=== PATIENT | male | born 1995 | race African-American/Black ===

== ENCOUNTER → 2018-07-20 08:08 | Outpatient (POV) | payer OTHER, SELFPAY | PROVIDERS: Family Provider Family Medicine; PCP Nurse Practitioner; Visit Provider Dentist | DX: Z00.00 Encounter for general adult medical examination without abnormal findings (principal) ==

== ENCOUNTER 2020-09-19 17:21 | Emergency (ER) | payer OTHER, SELFPAY ==
[2020-09-19 17:22] VITALS: BP 119/82; BP 133/80; PULSE 83; PULSE 96; RESP 15; TEMP 36.6; O2SAT 100; BMI 21.2
--- NOTE | 2020-09-19 17:25 | ECG_ITS ---
APPROVED REPORT Exam: Resting ECG HR:79 bpm ECG Measurements Heart Rate 79 AXES RI 142 P 68 QRSd 78 QRS 93 QT 354 T 71 QTc 405 Conclusion Normal sinus rhythm Rightward axis Borderline ECG Electronically signed by : Gordy Meeks, 09/22/2020 07:30:54
--- NOTE | 2020-09-19 17:26 | XR_ITS ---
PROCEDURE: XR CHEST 2V Referring Doctor: Jah Morales Patient Age:25Y CLINICAL HISTORY: pain right-sided chest pain near collar bones past 3 weeks getting worse. Patient recently started they ping COMPARISON: CR CXR CHEST(2 VIEWS-NOT PORTABLE) from 04/12/2013 FINDINGS: Today's PA and lateral chest upright is compared to March 2013 CXR. No significant new findings. No focal infiltrate or consolidation. No pleural effusion or pneumothorax. The mild accentuation of central markings seen previously and I believe is stable when technique considered but no pulmonary mass or nodule identified. The heart is normal in size with roman and mediastinal structures unchanged and appearing satisfactory.. The chest wall appears satisfactory. No rib fracture or lesion on this standard chest film in the ribs, chest wall and T-spine appear stable and unchanged since 2012. The right clavicle shows no discrete pathology. Bones are fairly dense at the shoulders and clavicles clavicle but patient's young age and technique variations. The right hemidiaphragm of appear stable only slightly elevated compared to the left. No cervical ribs of significance. Lung apices clear. No erosions appreciated at the visualize ends of the clavicle on this chest film IMPRESSION: Stable chest with nothing definitely acute. Dictated by: Deandre Tang MD 09/20/2020 16:40 Deandre Tang MD in [place] 09/20/2020 16:40
--- NOTE | 2020-09-19 17:27 | HMH.EDGENADL ---
ED Disposition Clinical Impression: Chest pain Qualifiers: Chest pain type: chest pain on breathing Qualified Code(s): R07.1 - Chest pain on breathing Disposition: Home, Self-Care Condition on Discharge: Good Referrals: Gordy Kearney MD [Primary Care Provider] - 3 days Time of Disposition: 18:20 - Critical Care Critical Care Time: No Attestation: On , the high probability of a clinically significant, sudden or life threatening deterioration of the following system(s) required my full and direct attention, intervention and personal management. The time I documented below is in addition to time spent performing reported procedures but includes the following listed in this critical care notation. Medical Decision Making - Zachariah Inquiry Pt receiving controlled substance: No Zachariah was queried for this patient: No Vital Signs: 09/19/20 17:22 09/19/20 17:52 Temperature 97.8 F Temperature Source Temporal Artery Scan Pulse Rate [Right] 83 76 Respiratory Rate 15 Blood Pressure [Right Arm] 119/82 136/81 Blood Pressure Mean [Right Arm] 94 99 Blood Pressure Source [Right Arm] Automatic Cuff Automatic Cuff Blood Pressure Position [Right Arm] Sitting Sitting 02 Sat by Pulse Oximetry 100 98 Oxygen Delivery Method Room Air Room Air - Lab Data Lab Results 09/19/20 17:27: WBC 11.4 H, RBC 5.46, Hgb 15.3, Hct 47.5, MCV 87.0, MCH 28.0, MCHC 32.2, RDW 12.7, Plt Count 195, MPV 8.0, Neut % (Auto) 72.4, Lymph % (Auto) 19.2, Mclennan % (Auto) 7.1, Eos % (Auto) 0.8, Baso % (Auto) 0.5, Neut # (Auto) 8.2 H, Lymph # (Auto) 2.2, Mclennan # (Auto) 0.8, Eos # (Auto) 0.1, Baso # (Auto) 0.1 09/19/20 17:27: Sodium 140, Potassium 4.0, Chloride 102, Carbon Dioxide 29, Anion Gap 13.0, BUN 16, Creatinine 0.90, Estimated Creat Clear 137, Estimated GFR 103, Est GFR ( Amer) 124, Glucose 104 H, Calcium 9.5, Troponin I < 0.01 Result diagrams: 09/19/20 17:27 09/19/20 17:27 Orders (Tests/Meds): ORDERS Category Date Time Status XR chest 2V Stat Exams 09/19/20 17:26 Taken Troponin I Q3H Lab 09/19/20 20:30 Ordered Troponin I Q3H Lab 09/19/20 23:30 Ordered - ECG Data Tracing #1 7 9 bpm, normal sinus rhythm, normal intervals, no ST elevation or depression, no ectopy. ECG initial impression date: 09/19/20 ECG initial impression time: 17:27 Normal Sinus Rhythm: Yes Medical Decision Narrative: 25yo M evaluated secondary to right shoulder pain and shortness of breath. Differential diagnosis includes was not limited to: Musculoskeletal injury, asthma exacerbation, anxiety, ACS/MS. Initial presentation patient is in no acute distress, satting 99 to 100% on room air. Patient has numerous complaints about how his clavicle was broken when he was a child that is grandparents were and ignored his complaint until his clavicle had healed and there is nothing further to be done about it. He talks about how his chest feels heavy all over and he could not bring himself to get out of bed yesterday because his shoulder hurt too bad. EKG is unremarkable. Blood work is pending. Strongly suspect a component of anxiety. CBC, CMP, troponin are all unremarkable. Chest x-ray is negative. Patient was discharged home in stable condition. Encouraged to follow-up PCP for further evaluation and work-up. General Adult HPI - General Chief complaint: PAIN Stated complaint: pain in right rib/chest, soa Time Seen by Provider: 09/19/20 17:28 Mode of Arrival: Ambulatory Limitations: No Limitations Description of Symptoms (Recalled from ER Triage Doc. by RN): C/o right sided rib pain that radiates all throughout his chest and up into his colar bone. Pt states it hurts worse when he breathes in and moves. - History of Present Illness HPI narrative: 25yo M w/ past medical history significant for asthma and a fractured right clavicle reports the emergency department secondary to chest pain and shortness of breath. Patient states this is been ongoing f
[2020-09-19 17:39] LABS: Basophils # 0.1 K/mm3 (0-0.2); Basophils % 0.5 % (0.1-2.0); Eosinophils # 0.1 K/mm3 (0.0-0.4); Eosinophils % 0.8 % (0.1-12.0); Hematocrit 47.5 % (42.0-52.0); Hemoglobin 15.3 g/dL (14.1-18.0); Lymphocytes # 2.2 K/mm3 (0.7-4.5); Lymphocytes % 19.2 % (10-50); Mean Corpuscular HGB Conc 32.2 g/dL (31.8-35.4); Monocytes # 0.8 K/mm3 (0.1-1.0); Monocytes % 7.1 % (1.7-9.3); Neutrophils # 8.2 K/mm3 (1.8-7.8); Neutrophils % 72.4 % (37.0-80.0); Platelet Count 195 K/mm3 (142-424); Red Blood Count 5.46 M/mm3 (4.60-6.20); Red Cell Distribution Width 12.7 % (11.5-17.5); White Blood Count 11.4 K/mm3 (4.8-10.8)
[2020-09-19 17:44] LABS: Blood Urea Nitrogen 16 mg/dl (9-20); Calcium 9.5 mg/dl (8.4-10.2); Carbon Dioxide 29 mmol/L (22.0-30.0); Chloride 102 mmol/L (98-107); Creatinine Clearance Estimated 137 mL/min (50-200); Estimated Glomerular Filt Rate 103 ml/min (>60); GFR (African American) 124 ML/MIN (>60); Glucose 104 mg/dl (74-100); Sodium 140 mmol/L (136-145)
[2020-09-19 17:52] VITALS: BP 136/81; PULSE 76; O2SAT 98
[2020-09-19 18:00] VITALS: BP 125/79; PULSE 79; O2SAT 98
[2020-09-19 18:16] LABS: Troponin I < 0.01 ng/ml (0.00-0.034)
[2020-09-19 18:28] VITALS: BP 123/87; PULSE 87; RESP 12; TEMP 36.7; O2SAT 99
== END 2020-09-19 18:28 | disposition home or self-care (01) ==
PROVIDERS: Emergency Provider Family Medicine; PCP Family Medicine
DX: R07.1 Chest pain on breathing (principal); F17.290 Nicotine dependence, other tobacco product, uncomplicated
CPT/HCPCS: 71046; 80048; 84484; 85025; 93005; 99283

== ENCOUNTER 2021-01-17 21:16 | Emergency (ER) | payer OTHER, SELFPAY ==
[2021-01-17 21:27] VITALS: BP 123/73; PULSE 79; RESP 17; TEMP 36.6; O2SAT 96
--- NOTE | 2021-01-17 21:34 | XR_ITS ---
PROCEDURE: XR CHEST 2V CLINICAL HISTORY: right shoulder pain COMPARISON: CR CXR CHEST(2 VIEWS-NOT PORTABLE) from 04/12/2013 CR XR CHEST 2V from 09/19/2020 FINDINGS: The cardiomediastinal silhouette and pulmonary vascularity are within normal limits. The lungs are clear without infiltrates, suspicious nodules, or pleural effusions. No acute bony abnormalities. IMPRESSION: No acute findings. Dictated by: Dr. Devon Wang MD 01/18/2021 08:32 Dr. Devon Wang MD in [place] 01/18/2021 08:32
--- NOTE | 2021-01-17 21:34 | XR_ITS ---
PROCEDURE: XR SHOULDER RT MIN 2V CLINICAL INDICATION: pain with movement COMPARISON: No exams were available for comparison FINDINGS: There is an old well healed fracture of the lateral clavicle. The AC joint appears normal. The humeral head and glenoid are normal. There are no soft tissue calcifications. IMPRESSION: Old healed fracture lateral right clavicle Dictated by: Dr. Devon Wang MD 01/18/2021 08:34 Dr. Devon Wang MD in [place] 01/18/2021 08:34
--- NOTE | 2021-01-17 22:27 | HMH.EDGENADL ---
ED Disposition Clinical Impression: Scapular dysfunction Disposition: Home, Self-Care Condition on Discharge: Good Instructions: DI for Acute Pain -- Adult Additional Instructions: use meds and see pcp and ortho for follow up Prescriptions: predniSONE [Prednisone 20mg Tab] 20 mg PO BID #10 tab Prescription Printed Referrals: Gordy Kearney MD [Primary Care Provider] - Seth Ledbetter MD [Staff Physician] - - Critical Care Critical Care Time: No Attestation: On 01/17/21, the high probability of a clinically significant, sudden or life threatening deterioration of the following system(s) required my full and direct attention, intervention and personal management. The time I documented below is in addition to time spent performing reported procedures but includes the following listed in this critical care notation. Medical Decision Making - Medical Records Medical records reviewed: Yes: I reviewed the patient's medical records. - Zachariah Inquiry Pt receiving controlled substance: No Vital Signs: 01/17/21 21:27 Temperature 97.8 F Temperature Source Oral Pulse Rate [Right Brachial] 79 Respiratory Rate 17 Blood Pressure [Right Arm] 123/73 Blood Pressure Mean [Right Arm] 89 Blood Pressure Source [Right Arm] Automatic Cuff Blood Pressure Position [Right Arm] Sitting 02 Sat by Pulse Oximetry 96 Oxygen Delivery Method Room Air - Lab Data Lab results reviewed: Yes: I reviewed the patient's lab results. Orders (Tests/Meds): ORDERS Category Date Time Status CT chest wo con Stat Cat Scan 01/17/21 22:32 Taken Chest XR 2 view (NOT portable) [XR chest 2V] Stat Exams 01/17/21 21:34 Taken XR shoulder RT min 2V Stat Exams 01/17/21 21:34 Taken - Radiology Data #1 Image(s): Chest, Shoulder Image Reviewed: Yes I reviewed the patient's radiology image Preliminary Findings: No Fracture Seen - CT Data CT Scan: Chest Time Received: 00:[address] Reviewed: Yes: I have viewed the radiologist's interpretation Preliminary Findings: Normal/NAD Medical Decision Narrative: no pxt and has pain rt scapular with rom - will need ortho General Adult HPI - General Chief complaint: PAIN Stated complaint: pain right shoulder blade Time Seen by Provider: 01/17/21 22:00 Mode of Arrival: Family Vehicle Source of Information: Patient, Medical Record Limitations: No Limitations Description of Symptoms (Recalled from ER Triage Doc. by RN): right shoulder blade and clavicular discomfort for several days - History of Present Illness HPI narrative: rt scapular pain and rt ant chest pain with inc pain with rom and grinding to scapular area - does have alot lifting at work Onset (ago): day(s) Location: right, upper extremity Severity: moderate Associated symptoms: denies other symptoms Treatments prior to arrival: none - Related Data Previous Rx's Medication Instructions Recorded predniSONE [Prednisone 20mg 20 mg PO BID #10 tab 01/18/21 Tab] Allergies Allergy/AdvReac Type Severity Reaction Status Date / Time SHELLFISH (FOOD) Allergy Unknown SHOWED UP Uncoded 10/11/17 14:57 ON ALLERGY TESTING [facility] History - Hepatitis A Screen Drug use history?: No High risk sexual behaviors?: No History of sexually transmitted infection?: No Currently employed?: No Childcare worker?: No Do you have indoor plumbing?: Yes Do you have electricity?: Yes Attestation statement:: This patient has been screened for Hepatitis A risk factors. I have reviewed the patient's past medical history: Yes - Social History Alcohol Intake: never Occupational Status: other Household Members: other ROS Obtained: Yes All systems reviewed & no additional complaints - Constitutional Constitutional: Denies fever(s) - Eyes Eyes: Denies change in vision - ENT Ears, Nose, Mouth, and Throat: Denies sore throat - Cardiovascular Cardiovascular: Reports as per HPI, Denies chest pain, De
--- NOTE | 2021-01-17 22:32 | CT_ITS ---
PROCEDURE: CT CHEST WO CON CLINICAL INDICATION: RULE OUT PNEUMO COMPARISON: No exams were available for comparison TECHNIQUE: Axial images obtained with sagittal and coronal reformats. All CT scans at the facility use one or more dose reduction, viz: automated exposure control, ma/kV adjustment per patient size (including targeted exams where dose is matched to indication, i.e. head), or iterative reconstruction technique. FINDINGS: HEART AND MEDIASTINAL STRUCTURES: The heart is normal in size, there may be a tiny amount of pericardial fluid seen anteriorly. LUNGS AND PLEURAL SPACES: The lung bowles are somewhat hyperexpanded. There are borderline emphysematous changes. There is no infiltrate and no pleural fluid. There is no pneumothorax. BONY STRUCTURES: No acute bony abnormalities apparent. UPPER ABDOMEN: There is a tiny 1 mm nonobstructing calculus upper pole left kidney ADDITIONAL FINDINGS: No other significant abnormalities. IMPRESSION: Borderline emphysematous changes versus hyperexpansion from possible asthma, no definite pneumonic infiltrate seen Dictated by: Dr. Devon Wang MD 01/18/2021 08:55 Dr. Devon Wang MD in [place] 01/18/2021 08:55
[2021-01-18 00:04] VITALS: BP 113/74; PULSE 71; RESP 16; TEMP 36.7; O2SAT 98
== END 2021-01-18 00:18 | disposition home or self-care (01) ==
PROVIDERS: Emergency Provider Emergency Medicine; PCP Family Medicine
DX: M25.511 Pain in right shoulder (principal)
CPT/HCPCS: 71046; 71250; 73030; 99282

== ENCOUNTER 2021-09-05 14:44 | Emergency (ER) | payer OTHER, SELFPAY ==
[2021-09-05 14:45] VITALS: BP 104/80; PULSE 81; RESP 21; TEMP 37.2; O2SAT 98; BMI 19.3
--- NOTE | 2021-09-05 15:13 | HMH.EDUTC ---
[facility] Clinical Impression: Bronchitis Disposition: Home, Self-Care Condition on Discharge: Good Instructions: Acute Bronchitis Additional Instructions: Start antibiotic today. Be sure to complete entire prescription even if feeling better Tylenol and ibuprofen as needed for pain or fever Humidifier/vaporizer/hot steamy shower Follow-up with primary care tomorrow. Follow-up immediately in the ER of the [facility] for new or worsening symptoms or no noticeable improvement over the next 48-72 hours. Stop smoking Inhaler every 4-6 hours as needed. Should help open airways improved cough, wheezing, shortness of breath Start steroids today. Helps with inflammation therefore coughing and wheezing. Follow directions on package. Prescriptions: predniSONE [Prednisone 20mg Tab] 20 mg PO BID #10 tab [email or web address] Azithromycin [Zithromax 250mg tab] 250 mg PO DIRECTED #6 tab Transmission Status: [email or web address] Referrals: Gordy Kearney MD [Primary Care Provider] - Time of Disposition: 15:18 Medical Decision Making - Zachariah Inquiry Pt receiving controlled substance: No Vital Signs: 09/05/21 14:45 Temperature 99.0 F Temperature Source Oral Pulse Rate [Right Brachial] 81 Respiratory Rate 21 Blood Pressure [Right Arm] 104/80 L Blood Pressure Mean [Right Arm] 88 Blood Pressure Source [Right Arm] Automatic Cuff Blood Pressure Position [Right Arm] Sitting 02 Sat by Pulse Oximetry 98 Oxygen Delivery Method Room Air Orders (Tests/Meds): ORDERS Category Date Time Status Rapid PCR Covid and Flu A/B Stat Lab 09/05/21 15:11 Ordered [facility] HPI - General Chief complaint: [facility] Stated complaint: congestion, cough Time Seen by Provider: 09/05/21 15:13 Mode of Arrival: Ambulatory Source of Information: Patient Limitations: No Limitations Description of Symptoms (Recalled from Triage Doc. by RN): PATIENT C/O RUNNY NOSE, COUGH AND BODY ACHES X 2 DAYS HEENT Symptoms (Recalled from RN notes): Yes Resp Symptoms (Recalled from RN notes): Yes Skin Symptoms (Recalled from RN notes): No MS Symptoms (Recalled from RN notes): No Functional Status (Recalled from RN notes): WNL - History of Present Illness Provider Complaint: 26 yr old male presents for cough,wheezing, congestion and sore throat for 3 days. has been exposed to covid - Related Data Previous Rx's Medication Instructions Recorded Azithromycin [Zithromax 250mg 250 mg PO DIRECTED #6 tab 09/05/21 tab] predniSONE [Prednisone 20mg 20 mg PO BID #10 tab 09/05/21 Tab] Allergies Allergy/AdvReac Type Severity Reaction Status Date / Time shellfish derived Allergy Verified 09/05/21 15:01 - Worker's Comp Is this a Worker's Comp case?: No [facility] History - Hepatitis A Screen Drug use history?: No High risk sexual behaviors?: No History of sexually transmitted infection?: No Currently employed?: No Childcare worker?: No Do you have indoor plumbing?: Yes Do you have electricity?: Yes Attestation statement:: This patient has been screened for Hepatitis A risk factors. I have reviewed the patient's past medical history: Yes - Social History Alcohol Intake: never Occupational Status: other Household Members: other ROS Obtained: Yes Systems reviewed as appropriate & no additional complaints - Constitutional Constitutional: Reports system reviewed and no additional complaints, except as docu, Denies fever(s) - Eyes Eyes: Reports system reviewed and no additional complaints, except as docu, Denies blind spots - ENT Ears, Nose, Mouth, and Throat: Reports system reviewed and no additional complaints, except as docu, Reports nasal congestion, Reports nasal discharge, Denies sore throat - Cardiovascular Cardiovascular: Reports system reviewed and no additional complaints, except as docu, Denies chest pain - Respiratory Respiratory:
[2021-09-05 15:25] VITALS: BP 104/80; PULSE 81; RESP 21; TEMP 37.2; O2SAT 98
[2021-09-05 15:31] LABS: Influenza A, PCR Not Detected (NotDetected); Influenza B, PCR Not Detected (NotDetected)
[2021-09-05 16:10] LABS: Coronavirus 19, PCR Detected (NotDetected)
== END 2021-09-05 15:29 | disposition home or self-care (01) ==
PROVIDERS: Emergency Provider Nurse Practitioner Family; PCP Family Medicine
DX: U07.1 COVID-19 (principal); J02.9 Acute pharyngitis, unspecified
CPT/HCPCS: 99202; C9803; G0463; U0003; U0005

== ENCOUNTER → 2021-09-22 13:21 | Outpatient (CLI) | payer OTHER, SELFPAY | PROVIDERS: PCP Family Medicine; Visit Provider Nurse Practitioner | DX: Z20.822 Contact with and (suspected) exposure to COVID-19 (principal) | CPT/HCPCS: C9803; U0003; U0005 ==

== ENCOUNTER 2021-10-09 11:09 | Emergency (ER) | payer OTHER, SELFPAY ==
[2021-10-09 12:10] VITALS: BP 149/71; PULSE 96; RESP 18; TEMP 37.1; O2SAT 95
--- NOTE | 2021-10-09 12:13 | XR_ITS ---
PROCEDURE: XR CHEST 2V CLINICAL HISTORY: sob cough COMPARISON: CR CXR CHEST(2 VIEWS-NOT PORTABLE) from 04/12/2013 CR XR CHEST 2V from 09/19/[address] CHEST WO CON from 01/17/2021 CR XR CHEST 2V from 01/17/2021 FINDINGS: The cardiomediastinal silhouette and pulmonary vascularity are within normal limits. There is hyperinflation of the lungs suggesting small airway disease. No lobar consolidation or collapse. No acute bony abnormalities. There is an old right clavicle fracture. IMPRESSION: Lung hyperinflation suggesting small airway disease such is asthma or bronchitis. Dictated by: Kenneth Allen MD 10/09/2021 13:00 Kenneth Allen MD in [place] 10/09/2021 13:00
--- NOTE | 2021-10-09 12:41 | HMH.EDUTC ---
[facility] Impression: Asthma exacerbation Qualifiers: Asthma severity: unspecified severity Asthma persistence: unspecified Qualified Code(s): J45.901 - Unspecified asthma with (acute) exacerbation Disposition: Home, Self-Care Condition on Discharge: Good Instructions: DI for Asthma -- Adult Additional Instructions: Drink plenty of fluids. Take tylenol or ibuprofen for pain or fever. Take the medications as directed. Follow up with your regular doctor. GO TO THE ER FOR ANY WORSENING SYMPTOMS The cough medication (promethazine dm) will make you drowsy, so don't drive or operate heavy machinery after taking it. Prescriptions: Albuterol Sulfate [Albuterol 0.083% 2.5mg/3mL neb] 2.5 mg IH Q6HP PRN 30 Days #90 ml PRN Reason: Shortness Of Breath Transmission Status: Received by [facility] Promethazine/Dextromethorphan [Promethazine-Dm Syrup] 5 ml PO Q6HP PRN #240 ml PRN Reason: Cough Transmission Status: Received by [facility] Amoxicillin/Potassium Clav [Augmentin 875-125 Tablet] 1 tab PO Q12H 10 Days #20 tab Transmission Status: Received by [facility] methylPREDNISolone [Medrol] 4 mg PO DIRECTED 6 Days #21 packet Transmission Status: Received by [facility] guaiFENesin [Mucinex 600mg tablet] 1 - 2 tab PO BIDP PRN #30 tab PRN Reason: Congestion Transmission Status: Received by [facility] Referrals: Gordy Kearney MD [Primary Care Provider] - Forms: Work/School Release Time of Disposition: 13:14 Medical Decision Making - Medical Records Medical records reviewed: No: I reviewed the patient's medical records. - Zachariah Inquiry Pt receiving controlled substance: No Vital Signs: 10/09/21 12:10 10/09/21 13:15 Temperature 98.8 F 98.8 F Temperature Source Oral Pulse Rate 96 H Pulse Rate [Right Brachial] 96 H Respiratory Rate 18 18 Blood Pressure 149/71 H Blood Pressure [Right Arm] 149/71 H Blood Pressure Mean [Right Arm] 97 Blood Pressure Source [Right Arm] Automatic Cuff Blood Pressure Position [Right Arm] Sitting 02 Sat by Pulse Oximetry 95 Oxygen Delivery Method Room Air - Lab Data Lab results reviewed: Yes: I reviewed the patient's lab results. Lab Results 10/09/21 13:16: Chlamy pneumoniae PCR Not detected, Adenovirus (PCR) Not detected, B. pertussis DNA (PCR) Not detected, Coronavirus OC43 (PCR) Not detected, Coronavirus HKU1 (PCR) Not detected, Coronavirus 229E (PCR) Not detected, SARS-CoV-2 (PCR) Not detected, Coronavirus NL63 (PCR) Not detected, Human Metapneumovir PCR Not detected, Influenza A (H1) PCR Not detected, Influ A (H1N1/09) PCR Not detected, Influenza A (H3) PCR Not detected, Influenza Type A (PCR) Not detected, Influenza Type B (PCR) Not detected, M. pneumoniae (PCR) Not detected, Parainfluenza 1 (PCR) Not detected, Parainfluenza 2 (PCR) Not detected, Parainfluenza 3 (PCR) Not detected, Parainfluenza 4 (PCR) Not detected, RSV (PCR) Not detected, Entero/Rhino (PCR) Detected A Orders (Tests/Meds): ED MEDICATIONS Discontinued Medications Generic Name Dose Route Start Last Admin Trade Name Freq PRN Reason Stop Dose Admin Albuterol Sulfate 2.5 mg 10/09/21 12:35 10/09/21 12:36 Albuterol 0.083% 2.5 Mg/3 Ml Neb IH 10/09/21 12:36 2.5 mg ONCE ONE Administration [facility] [place] - General Stated complaint: covid symptoms Time Seen by Provider: 10/09/21 12:44 Mode of Arrival: Ambulatory Source of Information: Patient Limitations: No Limitations Description of Symptoms (Recalled from Triage Doc. by RN): PATIENT C/O SOA, RINGING IN EARS, COUGH, AND MID BACK PAIN. RECENTLY DIAGNOSED WITH COVID ON 09/07/21 HEENT Symptoms (Recalled from RN notes): Yes Resp Symptoms (Recalled from RN notes): Yes Skin Symptoms (Recalled from RN notes): No MS Symptoms (Recalled from RN notes): Yes Functional Status (Recalled from RN notes): WNL - History of Present Illness Provider Complaint: He states
[2021-10-09 13:15] VITALS: BP 149/71; PULSE 96; RESP 18; TEMP 37.1; O2SAT 95
[2021-10-09 13:23] LABS: Adenovirus,PCR Not Detected (NotDetected); Bordetella Pertussis Not Detected (NotDetected); Chlamydophila Pneumoniae, PCR Not Detected (NotDetected); Coronavirus 19, PCR Not Detected (NotDetected); Coronavirus 229E Not Detected (NotDetected); Coronavirus NL63 Not Detected (NotDetected); Coronavirus OC43 Not Detected (NotDetected); Coronovirus HKU1,PCR Not Detected (NotDetected); Human Metapneumovirus Not Detected (NotDetected); Influenza A, PCR Not Detected (NotDetected); Influenza AH1, 2009 Not Detected (NotDetected); Influenza AH1, PCR Not Detected (NotDetected); Influenza AH3,PCR Not Detected (NotDetected); Influenza B, PCR Not Detected (NotDetected); Mycoplasma Pneumoniae, PCR Not Detected (NotDetected); Parainfluenza 1, PCR Not Detected (NotDetected); Parainfluenza 2, PCR Not Detected (NotDetected); Parainfluenza 3, PCR Not Detected (NotDetected); Parainfluenza 4, PCR Not Detected (NotDetected); Respiratory Syncytial Virus Not Detected (NotDetected)
[2021-10-09 17:24] LABS: Rhinovirus/Enterovirus Detected (NotDetected)
== END 2021-10-09 13:18 | disposition home or self-care (01) ==
PROVIDERS: Emergency Provider Nurse Practitioner Family; PCP Family Medicine
DX: J45.901 Unspecified asthma with (acute) exacerbation (principal); M54.6 Pain in thoracic spine
CPT/HCPCS: 71046; 87581; 87632; 87798; 99202; C9803; G0463; U0003; U0005

== ENCOUNTER 2022-02-10 10:03 | Emergency (ER) | payer OTHER, SELFPAY ==
[2022-02-10 10:21] VITALS: BP 132/79; PULSE 73; RESP 17; TEMP 36.9; O2SAT 99; BMI 21.2
--- NOTE | 2022-02-10 10:27 | CT_ITS ---
FINAL REPORT CLINICAL HISTORY: abd pain COMPARISON: January 25, 2019 FINDINGS: CT OF THE ABDOMEN AND PELVIS WITH CONTRAST Axial CT images of the abdomen and pelvis were obtained after the administration of IV contrast. Coronal reformatted images were also obtained and reviewed.This study was performed with techniques to keep radiation doses as low as reasonably achievable (ALARA). Individualized dose reduction techniques using automated exposure control or adjustment of mA and/or kV according to the patient's size were employed. Abdomen: The lung bases are clear. The heart is normal in size. The liver has an unremarkable appearance, without evidence of mass or biliary ductal dilatation. The gallbladder is present. The spleen is unremarkable. No adrenal mass is present. The pancreas has an unremarkable appearance. The kidneys are normal, without evidence of mass or hydronephrosis. The aorta is normal in caliber. There is no free fluid or adenopathy. No mass or abnormal fluid collection is seen. Pelvis: The appendix normal. There are multiple fluid-filled bowel loops in a nonspecific pattern which could represent an enteritis. The urinary bladder is unremarkable. No inflammatory process is seen. There is no evidence of mass or adenopathy. There is no evidence of bowel obstruction. IMPRESSION: Findings could represent an enteritis. Reviewed, Interpreted and Dictated by Yury Pantoja III, MD Transcribed by Cherry Abarca Authenticated by Yury Pantoja III, MD on 02/10/2022 12:34:54 PM [facility]
[2022-02-10 10:30] VITALS: BP 118/80; PULSE 58; O2SAT 98
[2022-02-10 10:38] LABS: Basophils # 0.1 K/mm3 (0-0.2); Basophils % 0.5 % (0.1-2.0); Eosinophils # 0.1 K/mm3 (0.0-0.4); Eosinophils % 0.7 % (0.1-12.0); Hematocrit 50.4 % (42.0-52.0); Hemoglobin 16.4 g/dL (14.1-18.0); Lymphocytes # 0.6 K/mm3 (0.7-4.5); Lymphocytes % 4.5 % (10-50); Mean Corpuscular HGB Conc 32.5 g/dL (31.8-35.4); Mean Corpuscular Hemoglobin 28.2 pg (27.0-31.2); Monocytes # 0.6 K/mm3 (0.1-1.0); Monocytes % 4.5 % (1.7-9.3); Neutrophils # 11.5 K/mm3 (1.8-7.8); Neutrophils % 89.8 % (37.0-80.0); Platelet Count 222 K/mm3 (142-424); Red Blood Count 5.79 M/mm3 (4.60-6.20); White Blood Count 12.8 K/mm3 (4.8-10.8)
[2022-02-10 10:39] LABS: Chloride 107 mmol/L (98-107); Potassium 4.4 mmoL/L (3.5-5.1); Sodium 140 mmol/L (136-145)
[2022-02-10 10:40] LABS: MANUAL DIFFERENTIAL MANUAL DIFFERENTIAL (MANUAL DIFF)
[2022-02-10 10:41] LABS: Blood Urea Nitrogen 20 mg/dl (9-20); Creatinine Clearance Estimated 153 mL/min (50-200); Estimated Glomerular Filt Rate 117 ml/min (>60); GFR (African American) 141 ML/MIN (>60)
[2022-02-10 10:42] LABS: Alanine Aminotransferase 45 U/L (12-78); Albumin Level 4.7 g/dl (3.5-5.0); Albumin/Globulin Ratio 1.3 (1.1-1.8); Alkaline Phosphatase 138 U/L (38-126); Anion Gap 12.4 mEq/L (5-15); Aspartate Amino Transferase 55 U/L (17-59); Bilirubin,Total 1.6 mg/dl (0.2-1.3); Calcium 9.2 mg/dl (8.4-10.2); Carbon Dioxide 25 mmol/L (22.0-30.0); Globulin 3.5 g/dL (1.3-3.2); Glucose 117 mg/dl (74-100); Total Protein,Serum 8.2 g/dl (6.3-8.2)
--- NOTE | 2022-02-10 10:48 | PC.NURSE ---
patient to CT with radio journalist by franklyn
--- NOTE | 2022-02-10 10:53 | HMH.EDGENADL ---
ED Disposition Clinical Impression: Gastroenteritis Disposition: Home, Self-Care Condition on Discharge: Good Instructions: DI for Viral Gastroenteritis -- Adult Additional Instructions: Zofran as needed for nausea and vomiting. Tylenol or ibuprofen as needed for pain or fever. Collect a diarrhea sample using the provided supplies and return it along with the order form to ER registration at [facility] for testing. Obtain the results of this test from your primary care provider the next day. Additional instructions for VOMITING/DIARRHEA: See your physician as soon as possible for further evaluation. Drink plenty of fluids. Return immediately if severe abdominal pain, uncontrollable vomiting, shortness of breath, fever, bloody diarrhea, vomiting of blood or abdominal distention. Prescriptions: Ondansetron [Zofran 4mg ODT] 4 mg PO TIDP PRN #10 tab PRN Reason: Nausea And Vomiting Transmission Status: Pending to [facility] Referrals: Provider,Referral, [Primary Care Provider] - - Critical Care Critical Care Time: No Attestation: On 02/10/22, the high probability of a clinically significant, sudden or life threatening deterioration of the following system(s) required my full and direct attention, intervention and personal management. The time I documented below is in addition to time spent performing reported procedures but includes the following listed in this critical care notation. Medical Decision Making - Zachariah Inquiry Pt receiving controlled substance: No Vital Signs: 02/10/22 10:21 02/10/22 10:30 Temperature 98.4 F Temperature Source Oral Pulse Rate 58 L Pulse Rate [Left Radial] 73 Respiratory Rate 17 Blood Pressure 118/80 Blood Pressure [Right Arm] 132/79 Blood Pressure Mean [Right Arm] 96 02 Sat by Pulse Oximetry 99 86 L Oxygen Delivery Method Room Air Room Air - Lab Data Lab Results 02/10/22 10:20: WBC 12.8 H, RBC 5.79, Hgb 16.4, Hct 50.4, MCV 87.0, MCH 28.2, MCHC 32.5, RDW 13.0, Plt Count 222, MPV 9.0, Neut % (Auto) 89.8 H, Lymph % (Auto) 4.5 L, Weld % (Auto) 4.5, Eos % (Auto) 0.7, Baso % (Auto) 0.5, Neut # (Auto) 11.5 H, Lymph # (Auto) 0.6 L, Weld # (Auto) 0.6, Eos # (Auto) 0.1, Baso # (Auto) 0.1, Total Counted 100, Neutrophils % (Manual) 91 H, Lymphocytes % (Manual) 6 L, Monocytes % (Manual) 3, Platelet Estimate Normal, RBC Morphology Normal 02/10/22 10:20: Sodium 140, Potassium 4.4, Chloride 107, Carbon Dioxide 25, Anion Gap 12.4, BUN 20, Creatinine 0.80, Estimated Creat Clear 153, Estimated GFR 117, Est GFR ( Amer) 141, Glucose 117 H, Calcium 9.2, Total Bilirubin 1.6 H, AST 55, ALT 45, Alkaline Phosphatase 138 H, Total Protein 8.2, Albumin 4.7, Globulin 3.5 H, Albumin/Globulin Ratio 1.3 Result diagrams: 02/10/22 10:20 02/10/22 10:20 Orders (Tests/Meds): ED MEDICATIONS Generic Name Dose Route Start Last Admin Trade Name Freq PRN Reason Stop Dose Admin Sodium Chloride 10 ml 02/10/22 10:27 Sodium Chloride 0.9% 10ml Flush Syringe IV 03/12/22 10:26 NEEDED PRN Maintain IV Site Discontinued Medications Generic Name Dose Route Start Last Admin Trade Name Freq PRN Reason Stop Dose Admin Sodium Chloride 1,000 mls @ 999 mls/hr 02/10/22 10:30 Sod Chlor 0.9% 1000ml Bag IV 02/10/22 11:30 .Q1H1M ADOLFO Lactated Ringer's 1,000 mls @ 999 mls/hr 02/10/22 10:30 02/10/22 10:44 Lactated Ringer's 1000 Ml Bag IV 02/10/22 11:30 999 mls/hr .Q1H1M ADOLFO Administration Iopamidol 75 ml 02/10/22 11:01 02/10/22 11:02 Iopamidol-370 (76%);100ml Bottle IV 02/10/22 11:02 75 ml ONCE ONE Administration Ketorolac Tromethamine 30 mg 02/10/22 12:48 Ketorolac 30mg/Ml Vial IV 02/10/22 12:49 ONCE ONE Ondansetron HCl 4 mg 02/10/22 10:27 02/10/22 10:44 Ondansetron 4mg/2ml Vial IV 02/10/22 10:28 4 mg ONCE ONE Administration Sodium Chloride 10 ml 02/10/22 11:01 02/10/22 11:02 Sodium Chloride 0.9% 10ml Syr
--- NOTE | 2022-02-10 11:01 | PC.NURSE ---
patient back from CT with optometric technologist by franklyn
--- NOTE | 2022-02-10 11:10 | PC.NURSE ---
ED MD at
[2022-02-10 11:31] LABS: Lymphocytes % 6 % (10-50); Monocytes % 3 % (2-9); Neutrophils % 91 % (42-76); Platelet Estimate Normal; RBC Morphology Normal; Total Cells Counted 100
--- NOTE | 2022-02-10 12:19 | PC.NURSE ---
Rounded on patient who requested something to drink at this time, advised him we were still waiting on CT results and he would need to wait just a little longer. Pt agreeable at this time, no other needs.
[2022-02-10 12:30] VITALS: BP 110/60; PULSE 68; O2SAT 99
--- NOTE | 2022-02-10 12:44 | PC.NURSE ---
Went in and advised pt official CT report was back and I would let the MD know so he could review it.
[2022-02-10 13:04] VITALS: BP 132/73; PULSE 87; RESP 16; TEMP 37.2; O2SAT 98
== END 2022-02-10 13:05 | disposition home or self-care (01) ==
PROVIDERS: Emergency Provider Emergency Medicine
DX: K52.9 Noninfective gastroenteritis and colitis, unspecified (principal)
CPT/HCPCS: 74177; 80053; 85007; 85025; 96360; 96361; 96375; 99284; J2405; Q9967

== ENCOUNTER → 2022-03-26 13:58 | Outpatient (CLI) | payer OTHER, SELFPAY ==
--- NOTE | 2022-03-26 14:02 | XR_ITS ---
FINAL REPORT CLINICAL HISTORY: shoulder/ collar bone pain, hx of previous clavicle fx FINDINGS: RIGHT SHOULDER Two views demonstrate no acute fracture or dislocation. There is a stable chronic distal clavicle fracture. The joint spaces appear normal. The visualized bony structures are well aligned. No soft tissue abnormality is seen. IMPRESSION: No acute process. Reviewed, Interpreted and Dictated by Yury Pantoja III, MD Transcribed by Iman Story Authenticated and [facility]
== END ==
PROVIDERS: PCP Nurse Practitioner Family; Visit Provider Orthopaedic Surgery
DX: M25.511 Pain in right shoulder (principal)
CPT/HCPCS: 73030

== ENCOUNTER → 2022-03-31 07:57 | Outpatient (CLI) | payer OTHER, SELFPAY ==
--- NOTE | 2022-03-31 07:58 | MR_ITS ---
FINAL REPORT CLINICAL HISTORY: right shoulder pain, old injury 6 years ago still having pain with movement FINDINGS: Multiplanar MR imaging of the right shoulder was performed without contrast. The tendons of the rotator cuff are intact without evidence of rotator cuff tear. There is mild AC joint arthrosis. There is a subchondral cyst in the posterior humeral head. No abnormal fluid is seen in the subacromial/subdeltoid bursa. The glenoid labrum is intact. The long head of the biceps tendon is intact. No significant glenohumeral joint effusion is seen. There is no evidence of fracture or dislocation. The musculature is intact. There is no evidence of soft tissue mass. IMPRESSION: Mild AC joint arthrosis. No evidence of rotator cuff or labral tear. Reviewed, Interpreted and Dictated by Yury Pantoja III, MD Transcribed by Jill Harrington Authenticated and [facility]
== END ==
PROVIDERS: PCP Nurse Practitioner Family; Visit Provider Orthopaedic Surgery
DX: M25.511 Pain in right shoulder (principal)
CPT/HCPCS: 73221

== ENCOUNTER 2022-09-10 03:35 | Emergency (ER) | payer OTHER, SELFPAY ==
[2022-09-10 03:37] VITALS: BP 122/87; PULSE 105; RESP 27; TEMP 36.5; O2SAT 97
--- NOTE | 2022-09-10 03:46 | XR_ITS ---
PROCEDURE INFORMATION: Exam: XR Chest Exam date and time: 09/10/2022 3:57 AM Age: 27 years old Clinical indication: Dyspnea and shortness of breath; Additional info: SOA, dyspnea TECHNIQUE: Imaging protocol: Radiologic exam of the chest. Views: 2 views. COMPARISON: CR XR CHEST 2V 10/09/2021 12:18 PM FINDINGS: Lungs: Well aerated with no evidence of consolidations, interstitial patterns or pulmonary nodules. Pleural spaces: No evidence of effusions or pneumothorax. Heart/Mediastinum: The cardiomediastinal silhouette is normal in size and configuration. There is no evidence of cardiomegaly. Bones/joints: Intact. IMPRESSION: No radiographic evidence of an acute pulmonary process.
[2022-09-10 03:55] LABS: Coronavirus 19, PCR Not Detected (NotDetected); Influenza A, PCR Not Detected (NotDetected); Influenza B, PCR Not Detected (NotDetected)
[2022-09-10 04:01] LABS: Basophils # 0.1 K/mm3 (0-0.2); Basophils % 1.4 % (0.1-2.0); Chloride 102 mmol/L (98-107); Eosinophils # 0.8 K/mm3 (0.0-0.4); Hematocrit 51.6 % (42.0-52.0); Hemoglobin 16.2 g/dL (14.1-18.0); Lymphocytes # 1.9 K/mm3 (0.7-4.5); Lymphocytes % 23.6 % (10-50); Mean Corpuscular HGB Conc 31.3 g/dL (31.8-35.4); Mean Corpuscular Hemoglobin 27.9 pg (27.0-31.2); Mean Corpuscular Volume 89.1 fl (80-94); Mean Platelet Volume 8.8 fl (7.4-10.4); Monocytes # 0.5 K/mm3 (0.1-1.0); Monocytes % 5.9 % (1.7-9.3); Neutrophils # 4.9 K/mm3 (1.8-7.8); Platelet Count 221 K/mm3 (142-424); Sodium 142 mmol/L (136-145); White Blood Count 8.2 K/mm3 (4.8-10.8)
[2022-09-10 04:02] LABS: Potassium 3.8 mmoL/L (3.5-5.1)
[2022-09-10 04:03] VITALS: PULSE 98
[2022-09-10 04:04] LABS: Alanine Aminotransferase 41 U/L (12-78); Albumin Level 4.9 g/dl (3.5-5.0); Albumin/Globulin Ratio 1.3 (1.1-1.8); Alkaline Phosphatase 145 U/L (38-126); Anion Gap 14.8 mEq/L (5-15); Aspartate Amino Transferase 40 U/L (17-59); Bilirubin,Total 0.7 mg/dl (0.2-1.3); Blood Urea Nitrogen 11 mg/dl (9-20); Carbon Dioxide 29 mmol/L (22.0-30.0); Creatinine Clearance Estimated 142 mL/min (50-200); Estimated Glomerular Filt Rate 116 ml/min (>60); GFR (African American) 140 ML/MIN (>60); Globulin 3.7 g/dL (1.3-3.2); Total Protein,Serum 8.6 g/dl (6.3-8.2)
[2022-09-10 04:05] LABS: Calcium 9.8 mg/dl (8.4-10.2); Glucose 93 mg/dl (74-100)
[2022-09-10 04:10] LABS: C-Reactive Protein 4.4 mg/L (0-4)
--- NOTE | 2022-09-10 04:24 | HMH.EDSOB ---
Discharge Plan Disposition Patient Disposition: Home, Self-Care Prescriptions Prescriptions: New azithromycin [azithromycin] 250 mg tablet 250 mg PO DIRECTED Qty: 6 0RF Rx Instructions: Take two (2) tablets on day #1, then one (1) tablet day #2 thru #5 prednisone [prednisone] 20 mg tablet 20 mg PO BID Qty: 10 0RF No Action albuterol sulfate 8.5 GM HFA aerosol inhaler 2 puff IH Q4HP PRN (Reason: SOA) albuterol sulfate 2.5 MG/NEB solution for nebulization 2.5 mg IH Q6HP PRN (Reason: Shortness Of Breath) 30 Days Qty: 90 2RF Referrals Follow up/Referrals: Samuel Murguia MD [Primary Care Provider] - See instructions Evelina Tomlin MD [Physician] - See instructions Clinical Impressions Clinical Impression: Asthma with exacerbation, Bronchitis Instructions Patient Instructions: DI for Shortness of Breath Discharge ED Provider: Zheng Blas Resp/SOB HPI General Chief Complaint: Shortness of Breath/Dyspnea Stated Complaint: Difficulty Breathing, Back pain Time Seen by Provider: 09/10/22 04:24 Mode of Arrival: Family Vehicle Source of Information: Patient and Significant Other Limitations: No Limitations Description of Symptoms (Recalled from ER Triage Doc. by RN): Pt c/o SOA, dyspnea, and upper back pain that has worsened since yetserday. He does report a hx of asthma and lungs not the same since he had covid . He also c/o cough, sinus congestion, and chills/hot flashes. Denies any fevers. He has been taking his albuterol neb treatments at home but states I don't think they are working, I cough so bad I throw up . History of Present Illness pt with hx of asthma and has had progressive sx over the last couple of days Complaint: shortness of breath Onset (ago): day(s) Severity: moderate Known history of: asthma Treatment prior to arrival: bronchodilator Related Data Home oxygen amount: none Home Medications Medication Instructions Recorded Confirmed albuterol sulfate 90 mcg/actuation 2 puff inhalation Q4HP PRN SOA 10/09/21 09/10/22 aerosol inhaler Previous Rx's Medication Instructions Recorded albuterol sulfate 2.5 mg/3 mL 2.5 mg (3 mL) inhalation Q6HP PRN 10/09/21 (0.083 %) solution for nebulization Shortness Of Breath 30 days #90 mL azithromycin 250 mg tablet 250 mg PO DIRECTED #6 tabs 09/10/22 prednisone 20 mg tablet 20 mg PO BID #10 tabs 09/10/22 Allergies Allergy/AdvReac Type Severity Reaction Status Date / Time shellfish derived Allergy Verified 04/02/22 13:20 PFSH PFSH Social History Smoking Status: Never smoker alcohol intake: never substance use type: marijuana current occupational status: other Travel in the last 8 weeks: None household members: other ROS Obtained: Yes All systems reviewed & no additional complaints except as documented Physical Exam General General appearance: alert Head Head exam: normocephalic Eye Eye exam: Present PERRL and EOMI ENT ENT exam: Present mucous membranes moist Neck Neck exam: Present trachea midline Respiratory Respiratory exam: Present wheezes Cardiovascular Cardiovascular exam: Present regular rate Abdominal Exam Abdominal exam: Present soft Extremities Exam Extremities exam: Present full ROM Neurological Exam Neurological exam: Present alert, oriented X3 and CN II-XII intact Psychiatric Psychiatric exam: Present normal affect Skin Skin exam: Absent rash Medical Decision Making Medical Records Medical records reviewed: Yes I reviewed the patient's medical records. Zachariah Inquiry Pt receiving controlled substance: No Vital Signs: 09/10/22 03:37 09/10/22 04:03 09/10/22 04:03 Temperature 97.7 F Temperature Source Oral Pulse Rate 98 H 98 H Pulse Rate [Right] 105 H Respiratory Rate 27 H Blood Pressure Blood Pressure [Right Arm] 122/87 Blood Pressure Mean [Right Arm] 98 Blood Pressure Source [Right Arm] Automatic Cuff 02 Sat by Pulse Oximetry 9
[2022-09-10 04:28] LABS: Erythrocyte Sedimentation Rate 2 mm/hr (0-15)
[2022-09-10 05:12] VITALS: BP 120/73; PULSE 99; RESP 20; TEMP 36.7; O2SAT 96
== END 2022-09-10 05:45 | disposition home or self-care (01) ==
PROVIDERS: Emergency Provider Emergency Medicine; PCP Family Medicine
DX: J45.901 Unspecified asthma with (acute) exacerbation (principal)
CPT/HCPCS: 71046; 80053; 85025; 85651; 86140; 94640; 96365; 96367; 96375; 99284; C9803; J0696; U0003; U0005

== ENCOUNTER 2023-02-01 06:41 | Emergency (ER) | payer OTHER, SELFPAY ==
[2023-02-01 06:58] VITALS: BP 120/75; PULSE 80; RESP 16; TEMP 36.7; O2SAT 99
== END 2023-02-01 07:07 | disposition left against medical advice (07) ==
LOC: ER 07:02
PROVIDERS: Emergency Provider Emergency Medicine
DX: Z53.21 Procedure and treatment not carried out due to patient leaving prior to being seen by health care provider (principal)
CPT/HCPCS: 99211

== ENCOUNTER 2023-03-02 21:34 | Emergency (ER) | payer OTHER, SELFPAY ==
[2023-03-02 21:36] VITALS: BP 140/93; PULSE 96; RESP 18; TEMP 36.6; O2SAT 92; BMI 20.6
[2023-03-02 21:41] VITALS: BP 140/93; PULSE 96; RESP 18; O2SAT 95
[2023-03-02 21:43] VITALS: BMI 21.2
--- NOTE | 2023-03-02 21:44 | XR_ITS ---
PROCEDURE INFORMATION: Exam: XR Chest Exam date and time: 03/02/2023 9:40 PM Age: 27 years old Clinical indication: Cough TECHNIQUE: Imaging protocol: Radiologic exam of the chest. Views: 2 views. COMPARISON: CR XR CHEST 2V 09/10/2022 3:57 AM FINDINGS: Lungs: No consolidation. Pleural spaces: No pneumothorax. Heart/Mediastinum: No cardiomegaly. Bones/joints: No acute fracture. IMPRESSION: No acute findings.
[2023-03-02 21:50] LABS: Coronavirus 19, PCR Not Detected (NotDetected); Influenza A, PCR Not Detected (NotDetected); Influenza B, PCR Not Detected (NotDetected)
[2023-03-02 22:00] VITALS: BP 131/92; PULSE 87; O2SAT 99
[2023-03-02 22:04] LABS: Strep Scrn Group A (Rapid) Negative (Negative)
--- NOTE | 2023-03-02 22:14 | HMH.EDURI ---
Discharge Plan Disposition Patient Disposition: Home, Self-Care Prescriptions Prescriptions: New budesonide-formoterol [Symbicort] 80-4.5 mcg/actuation HFA aerosol inhaler 1 puff inhalation BID Qty: 10.2 0RF prednisone [prednisone] 20 mg tablet 20 mg PO BID Qty: 10 0RF No Action albuterol sulfate 8.5 GM HFA aerosol inhaler 2 puff IH Q4HP PRN (Reason: SOA) albuterol sulfate 2.5 MG/NEB solution for nebulization 2.5 mg IH Q6HP PRN (Reason: Shortness Of Breath) 30 Days Qty: 90 2RF azithromycin [azithromycin] 250 mg tablet 250 mg PO DIRECTED Qty: 6 0RF Rx Instructions: Take two (2) tablets on day #1, then one (1) tablet day #2 thru #5 prednisone [prednisone] 20 mg tablet 20 mg PO BID Qty: 10 0RF Referrals Follow up/Referrals: Vandana Roldan APRN [Primary Care Provider] - See instructions Clinical Impressions Clinical Impression: Bronchitis, Asthma exacerbation Instructions Patient Instructions: DI for Acute Bronchitis, DI for Asthma -- Adult Discharge ED Provider: Wan (ED)Zheng URI/Sore Throat HPI General Chief Complaint: Upper Respiratory Infection Stated Complaint: SOA, sore throat, cough Time Seen by Provider: 03/02/23 22:15 Mode of Arrival: Ambulatory Source of Information: Patient and Medical Record Limitations: No Limitations Description of Symptoms (Recalled from ER Triage Doc. by RN): Pt arrives to ED with c.o congestion and trouble breathing since last tuesday. Pt reports a hx asthma and stated he has been taking his inhalers consistently without relief. History of Present Illness HPI Narrative: hx of asthma - has been ill since tuesday and seen by pcp today and given shot and on abx MD Complaint: cough and other (sob) Onset (ago): day(s) Duration: intermittent Severity: moderate Able to tolerate fluids by mouth: Yes Associated symptoms: chest pain and shortness of breath Treatments prior to arrival: antibiotics Related Data Home Medications Medication Instructions Recorded Confirmed albuterol sulfate 90 mcg/actuation 2 puff inhalation Q4HP PRN SOA 10/09/21 09/10/22 aerosol inhaler Previous Rx's Medication Instructions Recorded albuterol sulfate 2.5 mg/3 mL 2.5 mg (3 mL) inhalation Q6HP PRN 10/09/21 (0.083 %) solution for nebulization Shortness Of Breath 30 days #90 mL azithromycin 250 mg tablet 250 mg PO DIRECTED #6 tabs 09/10/22 prednisone 20 mg tablet 20 mg PO BID #10 tabs 09/10/22 budesonide-formoterol HFA 80 1 puff inhalation BID #10.2 grams 03/02/23 mcg-4.5 mcg/actuation aerosol inhaler (Symbicort) prednisone 20 mg tablet 20 mg PO BID #10 tabs 03/02/23 Allergies Allergy/AdvReac Type Severity Reaction Status Date / Time shellfish derived Allergy Verified 04/02/22 13:20 [facility] Disclaimer: The information contained in this section may have been updated after the patient was seen, as this information can be updated by other users. Social History Smoking Status: Current some day smoker alcohol intake: never substance use type: marijuana current occupational status: other Travel in the last 8 weeks: None household members: other ROS Obtained: Yes All systems reviewed & no additional complaints except as documented Physical Exam General General appearance: alert Head Head exam: normocephalic Eye Eye exam: Present PERRL and EOMI ENT ENT exam: Present mucous membranes moist Neck Neck exam: Present trachea midline Respiratory Respiratory exam: Present wheezes; Absent respiratory distress Cardiovascular Cardiovascular exam: Present regular rate; Absent systolic murmur or rubs Abdominal Exam Abdominal exam: Present soft Extremities Exam Extremities exam: Present full ROM; Absent joint swelling or calf tenderness Neurological Exam Neurological exam: Present alert, oriented X3 and CN II-XII intact; Absent motor sensory deficit Psychiatric Psychiatric exam: Present normal affect Skin Skin
[2023-03-02 22:30] VITALS: BP 119/80; PULSE 76; O2SAT 94
[2023-03-02 22:57] VITALS: BP 120/80; PULSE 78; RESP 18; TEMP 36.6; O2SAT 99
== END 2023-03-02 23:01 | disposition home or self-care (01) ==
PROVIDERS: Emergency Provider Emergency Medicine; PCP Nurse Practitioner Family
DX: F17.200 Nicotine dependence, unspecified, uncomplicated (principal); J45.901 Unspecified asthma with (acute) exacerbation; J20.9 Acute bronchitis, unspecified
CPT/HCPCS: 71046; 87430; 99284; 99285; C9803; U0003; U0005

== ENCOUNTER 2023-06-17 19:04 | Emergency (ER) | payer OTHER, SELFPAY ==
[2023-06-17 19:13] VITALS: BP 127/82; PULSE 84; RESP 16; TEMP 36.5; O2SAT 96; BMI 21.2
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
[2023-06-17 20:06] VITALS: BP 131/83; PULSE 87; RESP 16; TEMP 36.5
== END 2023-06-17 20:09 | disposition home or self-care (01) ==
PROVIDERS: Emergency Provider Emergency Medicine; PCP Family Medicine
DX: S01.01XA Laceration without foreign body of scalp, initial encounter (principal); W22.8XXA Striking against or struck by other objects, initial encounter
CPT/HCPCS: 12001; 90715; 96372; 99283

== ENCOUNTER 2024-03-18 07:48 | Emergency (ER) | payer OTHER, SELFPAY ==
[2024-03-18 07:50] VITALS: BP 133/94; PULSE 86; RESP 20; TEMP 36.5; O2SAT 96; BMI 20.6
--- NOTE | 2024-03-18 07:52 | ED_ITS ---
Discharge Plan Disposition Patient Disposition: Home, Self-Care Condition: Good Prescriptions Prescriptions: New prednisone 20 mg tablet 20 mg PO BID 5 Days Qty: 10 0RF ipratropium-albuterol 0.5 mg-3 mg(2.5 mg base)/3 mL solution for nebulization 3 ml inhalation Q4H PRN (Reason: shortness of breath) Qty: 90 0RF Rx Instructions: until breathing returns to target peak flow/parameters Discontinued prednisone [prednisone] 20 mg tablet 20 mg PO BID Qty: 10 0RF prednisone [prednisone] 20 mg tablet 20 mg PO BID Qty: 10 0RF No Action albuterol sulfate 8.5 GM HFA aerosol inhaler 2 puff IH Q4HP PRN (Reason: SOA) albuterol sulfate 2.5 MG/NEB solution for nebulization 2.5 mg IH Q6HP PRN (Reason: Shortness Of Breath) 30 Days Qty: 90 2RF azithromycin [azithromycin] 250 mg tablet 250 mg PO DIRECTED Qty: 6 0RF Rx Instructions: Take two (2) tablets on day #1, then one (1) tablet day #2 thru #5 budesonide-formoterol [Symbicort] 80-4.5 mcg/actuation HFA aerosol inhaler 1 puff inhalation BID Qty: 10.2 0RF Referrals Follow up/Referrals: Samuel Murguia MD [Primary Care Provider] - See instructions Activity Restrictions/Add. Instructions Additional Instructions/Restrictions: As we discussed, your chest x-ray and COVID test were negative. I have prescribed a course of steroids, also looking through your medication list, it looks like you have a nebulizer solution for albuterol but not albuterol and ipratropium. I recommend you use the albuterol and ipratropium as needed as this has 2 types of medications that are both helpful for asthma. Please return with any new or worsening symptoms. Clinical Impressions Clinical Impression: Asthma exacerbation Stand Alone Forms Stand Alone Forms: Work/School Release Discharge ED Provider: Layton Garrett General Adult HPI General Chief complaint: Upper Respiratory Infection Stated complaint: soa, fast heart rate, vomiting Time Seen by Provider: 03/18/24 07:52 History of Present Illness HPI narrative: The patient presents with a chief complaint of shortness of breath that has been ongoing for three days. He reports that the symptoms started with nasal drip, followed by a sore throat due to coughing. The patient has been monitoring his heart rate during episodes of coughing. He mentions that similar symptoms of nasal drip and coughing have been observed in both households he is in contact with, but notes that these individuals do not have asthma. The patient has a history of asthma and mentions the loss of a capsule for his nebulizer machine, leading to overuse of his inhaler. He reports using the inhaler more frequently than usual, approximately one or two puffs every four hours. The patient has stopped using the inhaler due to concerns about overuse. Additionally, he mentions an allergy to shellfish but does not report any other medical conditions. There is no mention of any other medications taken regularly for asthma or any other condition. Please note that above description of symptoms, in this electronic medical record under categorization of recalled from ER triage doctor by RN are reflective of an initial nursing assessment, however, is not reflective of my full history and physical exam that was personally taken and clarified. Consequentially, this preceding description of symptoms, which may include the patient's categorized chief complaint in the EMR, do not reflect my personal clinical impression, and the ultimate description of history of present illness and patient stated complaints should be deferred to this section of the note. Unless stated otherwise or congruent with this section of the note, additional signs, symptoms, or incongruence should be interpreted as inaccurate with my clinical impression. Related Data Home Medications Medication Instructions Recorded Confirmed albuterol sulfate 90 mcg/actuation 2 puff inhalation Q4HP PRN SOA 10/09/21 09/10/22 aerosol inhaler Previous Rx's Medication Instructions Recorded albuterol sulfate 2.5 mg/3 mL 2.5 mg (3 mL) inhalation Q6HP PRN 10/09/21 (0.083 %) solution for nebulization Shortness Of Breath 30 days #90 mL azithromycin 250 mg tablet 250 mg PO DIRECTED #6 tabs 09/10/22 budesonide-formoterol HFA 80 1 puff inhalation BID #10.2 grams 03/02/23 mcg-4.5 mcg/actuation aerosol inhaler (Symbicort) ipratropium 0.5 mg-albuterol 3 mg 3 ml inhalation Q4H PRN shortness 03/18/24 (2.5 mg base)/3 mL nebulization of breath #90 mL soln prednisone 20 mg tablet 20 mg PO BID 5 days #10 tabs 03/18/24 Allergies Allergy/AdvReac Type Severity Reaction Status Date / Time shellfish derived Allergy Verified 04/02/22 13:20 [facility] Disclaimer: The information contained in this section may have been updated after the patient was seen, as this information can be updated by other users. Social History Smoking Status: Never smoker alcohol intake: never substance use type: marijuana current occupational status: other Travel in the last 8 weeks: None household members: other ROS Obtained: Yes other As per HPI Physical Exam General General appearance: alert and in no apparent distress Head Head exam: atraumatic and normocephalic Eye Eye exam: Present normal appearance Neck Neck exam: Present normal inspection Chest Chest inspection: Present normal inspection and symmetric chest wall rise Respiratory Respiratory exam: Present wheezes, accessory muscle use and prolonged expiratory phase; Absent respiratory distress Cardiovascular Cardiovascular exam: Present regular rate and normal rhythm Abdominal Exam Abdominal exam: Present soft Neurological Exam Neurological exam: Present alert and oriented X3 Psychiatric Psychiatric exam: Present normal affect and normal mood Skin Skin exam: Present warm and dry Medical Decision Making Medical Records Medical records reviewed: Yes I reviewed the patient's medical records. Zachariah Inquiry Pt receiving controlled substance: No Vital Signs: 03/18/24 07:50 03/18/24 08:00 03/18/24 09:26 Temperature 97.7 F 98.8 F Temperature Source Oral Oral Pulse Rate 79 80 Pulse Rate [Right] 86 Respiratory Rate 20 18 Blood Pressure 117/87 117/75 Blood Pressure [Right Arm] 133/94 H Blood Pressure Mean [Right Arm] 107 Blood Pressure Source Automatic Cuff Blood Pressure Position Sitting 02 Sat by Pulse Oximetry 96 95 Oxygen Delivery Method Room Air Room Air Lab Data Lab Results 03/18/24 08:00: SARS-CoV-2 (PCR) Not detected, Influenza A Untype (PCR) Not detected, Influenza Type B (PCR) Not detected Orders (Tests/Meds): ED MEDICATIONS Discontinued Medications Generic Name Dose Route Start Last Admin Trade Name Freq PRN Reason Stop Dose Admin Albuterol/Ipratropium 3 ml 03/18/24 08:15 03/18/24 08:36 Ipratropium/Albuterol 3 Ml Neb IH 03/18/24 08:16 3 ml ONCE ONE Administration Magnesium Sulfate 2 gm in 50 mls @ 50 mls/hr 03/18/24 08:15 03/18/24 08:36 Magnesium Sulfate 2gm/50ml Premix IV 03/18/24 09:14 50 mls/hr ONCE ONE Administration Ketorolac Tromethamine 15 mg 03/18/24 08:15 03/18/24 08:36 Ketorolac 30mg/Ml Vial IV 03/18/24 08:16 15 mg ONCE ONE Administration Methylprednisolone Sodium Succinate 40 mg 03/18/24 08:15 03/18/24 08:36 Methylprednisolone Sod Succ 40mg Vial IV 03/18/24 08:16 40 mg ONCE ONE Administration ORDERS Category Date Time Status XR chest 2V Stat Exams 03/18/24 08:15 Completed Rapid PCR Covid and Flu A/B Stat Lab 03/18/24 08:00 Completed Medical Decision Narrative: Patient with history and exam per above presenting for evaluation of shortness of breath, upper respiratory symptoms Diagnoses considered include asthma exacerbation, URI, COVID, influenza, pneumonia ED workup and treatment included: ED MEDICATIONS Discontinued Medications Generic Name Dose Route Start Last Admin Trade Name Freq PRN Reason Stop Dose Admin Albuterol/Ipratropium 3 ml 03/18/24 08:15 03/18/24 08:36 Ipratropium/Albuterol 3 Ml [facility] 03/18/24 08:16 3 ml ONCE ONE Administration Magnesium Sulfate 2 gm in 50 mls @ 50 mls/hr 03/18/24 08:15 03/18/24 08:36 Magnesium Sulfate 2gm/50ml Premix IV 03/18/24 09:14 50 mls/hr ONCE ONE Administration Ketorolac Tromethamine 15 mg 03/18/24 08:15 03/18/24 08:36 Ketorolac 30mg/Ml Vial IV 03/18/24 08:16 15 mg ONCE ONE Administration Methylprednisolone Sodium Succinate 40 mg 03/18/24 08:15 03/18/24 08:36 Methylprednisolone Sod Succ 40mg Vial IV 03/18/24 08:16 40 mg ONCE ONE Administration ORDERS Category Date Time Status XR chest 2V Stat Exams 03/18/24 08:15 Completed Rapid PCR Covid and Flu A/B Stat Lab 03/18/24 08:00 Completed Labs were independently interpreted by me, significant for no acute findings Imaging was independently visualized and interpreted by me, significant for no acute findings. Please refer to radiology report for full details. My clinical impression at this time is most consistent with asthma exacerbation, patient has improvement of symptoms upon repeat evaluation, will follow-up with PCP and as marked improvement work of breathing. I discussed my clinical impression with patient and answered all questions. At this time, the evidence for any other entities in the differential is insufficient to warrant any further testing or ED observation. This was explained to the patient. The patient was advised that persistent or worsening symptoms require further evaluation. I confirmed the patient's understanding of this discussion. Critical Care Critical Care Time Critical Care Time: No
--- NOTE | 2024-03-18 07:56 | ECG_ITS ---
APPROVED REPORT Exam: Resting ECG HR:70 bpm ECG Measurements Heart Rate 70 AXES FL 155 P 82 QRSd 87 QRS 91 QT 379 T 82 QTc 400 Conclusion SINUS RHYTHM BORDERLINE RIGHT AXIS DEVIATION [QRS AXIS > 90] POSSIBLE RIGHT VENTRICULAR CONDUCTION DELAY [RSR (QR) IN V1/V2] BORDERLINE ECG UNCONFIRMED REPORT Electronically signed by : JESSIE MUJICA, 03/20/2024 02:50:20
[2024-03-18 08:00] VITALS: BP 117/87; PULSE 79; O2SAT 95
--- NOTE | 2024-03-18 08:15 | XR_ITS ---
PROCEDURE INFORMATION: Exam: XR Chest Exam date and time: 03/18/2024 8:16 AM Age: 28 years old Clinical indication: Shortness of breath; Additional info: SOA, HX asthma, pneumo TECHNIQUE: Imaging protocol: Radiologic exam of the chest. Views: 2 views. COMPARISON: CR XR CHEST 2V 03/02/2023 9:40 PM FINDINGS: Lungs: Unremarkable. No consolidation. Pleural spaces: Unremarkable. No pleural effusion. No pneumothorax. Heart/Mediastinum: Unremarkable. No cardiomegaly. Bones/joints: There is an old right clavicular fracture. IMPRESSION: No acute findings.
[2024-03-18 08:34] LABS: Coronavirus 19, PCR Not Detected (NotDetected); Influenza A, PCR Not Detected (NotDetected); Influenza B, PCR Not Detected (NotDetected)
[2024-03-18] MEDS: METHYLPREDNISOLONE SOD SUCC 40MG VIAL 40 MG IV (08:36)
[2024-03-18] MEDS: MAGNESIUM SULFATE IN WATER 2 GM/50 ML PIGGYBACK IV (08:36)
[2024-03-18] MEDS: KETOROLAC 30MG/ML VIAL 15 MG IV (08:36)
[2024-03-18] MEDS: IPRATROPIUM/ALBUTEROL 3 ML NEB IH (08:36)
[2024-03-18 09:26] VITALS: BP 117/75; PULSE 80; RESP 18; TEMP 37.1; O2SAT 99
== END 2024-03-18 09:32 | disposition home or self-care (01) ==
PROVIDERS: Emergency Provider Emergency Medicine; PCP Family Medicine
DX: J45.901 Unspecified asthma with (acute) exacerbation (principal); R05.9 Cough, unspecified; R07.0 Pain in throat; R09.82 Postnasal drip
CPT/HCPCS: 71046; 87636; 93005; 96365; 96375; 99284; J3475

== ENCOUNTER 2024-09-10 17:31 | Emergency (ER) | payer OTHER, SELFPAY ==
--- NOTE | 2024-09-10 18:01 | ED_ITS ---
Discharge Plan Prescriptions Prescriptions: New doxycycline hyclate 100 mg capsule 100 mg PO BID 10 Days Qty: 20 0RF prednisone 50 mg tablet 50 mg PO DAILY 5 Days Qty: 5 0RF No Action albuterol sulfate 8.5 GM HFA aerosol inhaler 2 puff IH Q4HP PRN (Reason: SOA) albuterol sulfate 2.5 MG/NEB solution for nebulization 2.5 mg IH Q6HP PRN (Reason: Shortness Of Breath) 30 Days Qty: 90 2RF azithromycin [azithromycin] 250 mg tablet 250 mg PO DIRECTED Qty: 6 0RF Rx Instructions: Take two (2) tablets on day #1, then one (1) tablet day #2 thru #5 budesonide-formoterol [Symbicort] 80-4.5 mcg/actuation HFA aerosol inhaler 1 puff inhalation BID Qty: 10.2 0RF prednisone 20 mg tablet 20 mg PO BID 5 Days Qty: 10 0RF ipratropium-albuterol 0.5 mg-3 mg(2.5 mg base)/3 mL solution for nebulization 3 ml inhalation Q4H PRN (Reason: shortness of breath) Qty: 90 0RF Rx Instructions: until breathing returns to target peak flow/parameters Referrals Follow up/Referrals: Samuel Murguia MD [Primary Care Provider] - See instructions Evelina Tomlin MD [Physician] - See instructions Activity Restrictions/Add. Instructions Additional Instructions/Restrictions: I have sent prescriptions into your pharmacy. Please take to they are completed. I have also given you the contact information to self refer to pulmonology. Please call in the morning to make an appointment. Follow-up with your PCP for no improvement or worsening signs or symptoms or return to the ER as needed. Clinical Impressions Clinical Impression: Asthma exacerbation, Viral lower respiratory tract infection Print Language Print Language: Irish Discharge ED Provider: Krishna Sheldon General Adult HPI General Chief complaint: Fever Stated complaint: SOA,Chest congestion,sore throat Time Seen by Provider: 09/10/24 18:01 History of Present Illness HPI narrative: Patient presents for evaluation of shortness of breath cough and a sore throat. Patient has a history of asthma and normally utilizes nebulizer along with a rescue inhaler when he has a flare. However he is currently out of his nebulizer ampules and has been having to utilize his rescue inhaler 3-4 times a day. He reports that he feels short of breath along with a sore throat and a subjective fever. He denies cardiac chest pain hemoptysis hematochezia melena nausea vomiting diarrhea. Related Data Home Medications ?Medication ?Instructions ?Recorded ?Confirmed albuterol sulfate 90 mcg/actuation 2 puff inhalation Q4HP PRN SOA 10/09/21 09/10/22 aerosol inhaler Previous Rx's ?Medication ?Instructions ?Recorded albuterol sulfate 2.5 mg/3 mL 2.5 mg (3 mL) inhalation Q6HP PRN 10/09/21 (0.083 %) solution for nebulization Shortness Of Breath 30 days #90 mL azithromycin 250 mg tablet 250 mg PO DIRECTED #6 tabs 09/10/22 budesonide-formoterol HFA 80 1 puff inhalation BID #10.2 grams 03/02/23 mcg-4.5 mcg/actuation aerosol inhaler (Symbicort) ipratropium 0.5 mg-albuterol 3 mg 3 ml inhalation Q4H PRN shortness 03/18/24 (2.5 mg base)/3 mL nebulization of breath #90 mL soln prednisone 20 mg tablet 20 mg PO BID 5 days #10 tabs 03/18/24 doxycycline hyclate 100 mg capsule 100 mg PO BID 10 days #20 caps 09/10/24 prednisone 50 mg tablet 50 mg PO DAILY 5 days #5 tabs 09/10/24 Allergies Allergy/AdvReac Type Severity Reaction Status Date / Time shellfish derived Allergy Verified 04/02/22 13:20 [facility] Disclaimer: The information contained in this section may have been updated after the patient was seen, as this information can be updated by other users. Social History Smoking Status: Current every day smoker alcohol intake: never substance use type: marijuana current occupational status: other Travel in the last 8 weeks: None household members: other Other Medical History Have you received the Flu Vaccine for this season: No Have you received the Pneumonia Vaccine: No ROS Obtained: Yes Systems reviewed as appropriate & no additional complaints except as documented Physical Exam General General appearance: alert and in no apparent distress Respiratory Respiratory exam: Present wheezes; Absent normal lung sounds bilaterally, respiratory distress or accessory muscle use Cardiovascular Cardiovascular exam: Present regular rate Neurological Exam Neurological exam: Present alert and oriented X3 Medical Decision Making Medical Records Medical records reviewed: Yes I reviewed the patient's medical records. Screening: Per USPSTF and CDC recommendations, given the prevalence of disease in our region, it is our hospital?s policy to screen for HIV and viral Hepatitis for all patients aged 18 and over and those with ongoing risk factors. Zachariah Inquiry Pt receiving controlled substance: No Vital Signs: 09/10/24 18:32 09/10/24 20:14 Temperature 97.9 F 99.0 F Temperature Source Oral Oral Pulse Rate 90 Pulse Rate [Left Radial] 74 Respiratory Rate 18 20 Blood Pressure 119/74 Blood Pressure [Right Arm] 107/69 L Blood Pressure Mean [Right Arm] 81 Blood Pressure Source Automatic Cuff Blood Pressure Source [Right Arm] Automatic Cuff Blood Pressure Position Sitting Blood Pressure Position [Right Arm] Sitting 02 Sat by Pulse Oximetry 95 Oxygen Delivery Method Room Air Room Air Lab Data Lab results reviewed: Yes I reviewed the patient's lab results. Lab Results 09/10/24 18:50: WBC 9.5, RBC 5.32, Hgb 15.2, Hct 43.4, MCV 81.6, MCH 28.6, MCHC 35.0, RDW 13.2, Plt Count 177, MPV 8.3, Neut % (Auto) 80.4 H, Lymph % (Auto) 12.5, [place] % (Auto) 5.3, Eos % (Auto) 1.2, Baso % (Auto) 0.5, Neut # (Auto) 7.6, Lymph # (Auto) 1.2, [place] # (Auto) 0.5, Eos # (Auto) 0.1, Baso # (Auto) 0.1, Sodium 140, Potassium 3.8, Chloride 107, Carbon Dioxide 24, Anion Gap 12.8, BUN 12, Creatinine 0.80, Estimated Creat Clear 140, Estimated GFR 114, Est GFR ( Amer) 138, Glucose 126 H, Calcium 8.9, Magnesium 2.2, HIV 1&2 Antibody Rapid Nonreactive 09/10/24 18:50 09/10/24 18:50 Orders (Tests/Meds): ED MEDICATIONS Discontinued Medications Generic Name Dose Route Start Last Admin Trade Name Freq PRN Reason Stop Dose Admin Acetaminophen 1,000 mg 09/10/24 18:21 09/10/24 18:42 Acetaminophen 500mg Tab PO 09/10/24 18:22 1,000 mg ONCE ONE Administration Albuterol/Ipratropium 3 ml 09/10/24 18:21 09/10/24 18:43 Ipratropium/Albuterol 3 Ml Neb IH 09/10/24 18:22 3 ml ONCE ONE Administration Dexamethasone Sodium Phosphate 10 mg 09/10/24 18:21 09/10/24 18:41 Dexamethasone 4mg/Ml 5ml Mdv IV 09/10/24 18:22 10 mg ONCE ONE Administration Doxycycline Hyclate 100 mg 09/10/24 20:09 Doxycycline Hycl 100 Mg Tablet PO 09/10/24 20:10 ONCE ONE Ketorolac Tromethamine 15 mg 09/10/24 18:21 09/10/24 18:42 Ketorolac 30mg/Ml Vial IV 09/10/24 18:22 15 mg ONCE ONE Administration Sodium Chloride 3 ml 09/10/24 18:21 Sodium Chloride 3% 15ml [facility] 10/10/24 18:20 ONCE PRN INDUCE SPUTUM COLLECTION ORDERS Category Date Time Status Chest XR 2 view (NOT portable) [XR chest 2V] Stat Exams 09/10/24 18:21 Completed BMP [Basic Metabolic Panel] Stat Lab 09/10/24 18:50 Completed CBC w/Auto Diff [Complete Blood Count Auto Diff] Stat Lab 09/10/24 18:50 Completed HIV (1&2) Antibody Rapid Stat Lab 09/10/24 18:50 Completed Hep C Ab with Reflex to RNA Stat Lab 09/10/24 18:50 Received Magnesium Stat Lab 09/10/24 18:50 Completed Sputum Culture & Gram Stain Stat Micro 09/10/24 19:11 Results Medical Decision Narrative: In summary patient is a 29-year-old male who presents to the emergency department for evaluation of asthma exacerbation and upper respiratory tract infection. Patient is dynamically stable currently upon arrival, and afebrile with a temperature of 97 point. Physical exam is remarkable for end expiratory wheezing in all 4 bowles with no increased work of breathing. Breath sounds heard to bases.. Differential diagnosis includes viral versus bacterial respiratory tract infection versus asthma exacerbation versus pneumonia etc. Initial workup will be conducted with hematologic labs respiratory swabs plain film chest x-ray. Initial interventions include Tylenol Toradol prednisone DuoNeb. Initial workup reviewed by me shows that his hematologic labs are nonactionable, his respiratory swabs are negative, bicarb interpretation of his plain film chest x-ray shows no acute processes. Upon repeat evaluation patient reported significant improvement in his constitutional symptoms. Given this patient is appropriate for discharge with a prescription for steroids and doxycycline with strict return precautions. Critical Care Critical Care Time Critical Care Time: No
--- NOTE | 2024-09-10 18:21 | XR_ITS ---
PROCEDURE INFORMATION: Exam: XR Chest Exam date and time: 09/10/2024 6:51 PM Age: 29 years old Clinical indication: Cough and fever; Additional info: Cough, fever, h/o asthma TECHNIQUE: Imaging protocol: Radiologic exam of the chest. Views: 2 views. COMPARISON: CR XR CHEST 2V 03/18/2024 8:16 AM FINDINGS: Lungs: No consolidation. Pleural spaces: No pleural effusion. No pneumothorax. Heart/Mediastinum: No cardiomegaly. Bones/joints: Unremarkable. IMPRESSION: No acute pulmonary findings.
[2024-09-10 18:32] VITALS: BP 107/69; PULSE 74; RESP 18; TEMP 36.6; O2SAT 95
[2024-09-10] MEDS: DEXAMETHASONE 4MG/ML 5ML MDV 10 MG IV (18:41)
--- NOTE | 2024-09-10 18:41 | PC.NURSE ---
I spoke with Marcia in respiratory, they are going to come down to collect the sputum induced by neb.
[2024-09-10] MEDS: KETOROLAC 30MG/ML VIAL 15 MG IV (18:42)
[2024-09-10] MEDS: ACETAMINOPHEN 500MG TAB 1000 MG PO (18:42)
[2024-09-10] MEDS: IPRATROPIUM/ALBUTEROL 3 ML NEB IH (18:43)
[2024-09-10 19:04] LABS: Basophils # 0.1 K/mm3 (0-0.2); Basophils % 0.5 % (0.1-2.0); Eosinophils # 0.1 K/mm3 (0.0-0.4); Eosinophils % 1.2 % (0.1-12.0); Hematocrit 43.4 % (42.0-52.0); Hemoglobin 15.2 g/dL (14.1-18.0); Lymphocytes # 1.2 K/mm3 (0.7-4.5); Lymphocytes % 12.5 % (10-50); Mean Corpuscular Hemoglobin 28.6 pg (27.0-31.2); Mean Corpuscular Volume 81.6 fl (80-94); Mean Platelet Volume 8.3 fl (7.4-10.4); Monocytes # 0.5 K/mm3 (0.1-1.0); Monocytes % 5.3 % (1.7-9.3); Neutrophils # 7.6 K/mm3 (1.8-7.8); Neutrophils % 80.4 % (37.0-80.0); Platelet Count 177 K/mm3 (142-424); Red Blood Count 5.32 M/mm3 (4.60-6.20); Red Cell Distribution Width 13.2 % (11.5-17.5); White Blood Count 9.5 K/mm3 (4.8-10.8)
[2024-09-10 19:13] LABS: Chloride 107 mmol/L (98-107); Potassium 3.8 mmoL/L (3.5-5.1); Sodium 140 mmol/L (136-145)
[2024-09-10 19:16] LABS: Anion Gap 12.8 mEq/L (5-15); Calcium 8.9 mg/dl (8.4-10.2); Carbon Dioxide 24 mmol/L (22.0-30.0); Glucose 126 mg/dl (74-100); Magnesium 2.2 mg/dl (1.6-2.3)
--- NOTE | 2024-09-10 19:37 | PC.NURSE ---
Pt resting comfortably in bed. Resp full and easy Expiratory wheezed auscultated in posterior lung bowles. Skin pink warm and dry. Speech clear and appropriate. Awaiting disposition.
[2024-09-10 19:59] LABS: HIV (1&2) Antibody Rapid NONREACTIVE (NONREACTIVE)
[2024-09-10 20:14] VITALS: BP 119/74; PULSE 90; RESP 20; TEMP 37.2; O2SAT 99
[2024-09-10 20:50] LABS: Blood Urea Nitrogen 12 mg/dl (9-20); Creatinine Clearance Estimated 140 mL/min (50-200); Estimated Glomerular Filt Rate 114 ml/min (>60); GFR (African American) 138 ML/MIN (>60)
--- NOTE | 2024-09-11 08:46 | PC.NURSE ---
sputum culture discussed with , pt dc with doxycycline, ntd
[2024-09-12 06:16] LABS: HCV Ab Non Reactive (Non Reactive)
== END 2024-09-10 20:23 | disposition home or self-care (01) ==
PROVIDERS: Physician Assistant; Emergency Provider Emergency Medicine; PCP Family Medicine
DX: J45.901 Unspecified asthma with (acute) exacerbation (principal); J22 Unspecified acute lower respiratory infection; R06.02 Shortness of breath; R05.9 Cough, unspecified; J02.9 Acute pharyngitis, unspecified; R50.9 Fever, unspecified
CPT/HCPCS: 71046; 80048; 83735; 85025; 86803; 87070; 87077; 87186; 87205; 87389; 96374; 96375; 99283; J1100; J1885; J7620

== ENCOUNTER 2024-09-19 18:16 | Emergency (ER) | payer SELFPAY ==
[2024-09-19] VITALS (10 sets, daily range): BP systolic 113–142; BP diastolic 71–89; PULSE 100–129; RESP 16–26; TEMP 37; O2SAT 94–99
--- NOTE | 2024-09-19 18:35 | XR_ITS ---
PROCEDURE INFORMATION: Exam: XR Chest Exam date and time: 09/19/2024 6:34 PM Age: 29 years old Clinical indication: Cough and shortness of breath; Additional info: Cough, SOB TECHNIQUE: Imaging protocol: Radiologic exam of the chest. Views: 2 views. COMPARISON: CR XR CHEST 2V 09/10/2024 6:51 PM FINDINGS: Lungs: Unremarkable. No consolidation. Increase in the lung volumes with mild flattening of the hemidiaphragms. Findings unchanged. Pleural spaces: Unremarkable. No pleural effusion. No pneumothorax. Heart/Mediastinum: Unremarkable. No cardiomegaly. Bones/joints: Unremarkable. IMPRESSION: No acute findings.
--- NOTE | 2024-09-19 18:39 | ECG_ITS ---
APPROVED REPORT Exam: Resting ECG HR:117 bpm ECG Measurements Heart Rate 117 AXES SC 132 P 78 QRSd 86 QRS 93 QT 298 T 66 QTc 368 Conclusion SINUS TACHYCARDIA BORDERLINE RIGHT AXIS DEVIATION [QRS AXIS > 90] ABNORMAL RHYTHM ECG Electronically signed by : JEREMIAH LOO, 09/20/2024 00:18:28
--- NOTE | 2024-09-19 18:39 | ED_ITS ---
Discharge Plan Disposition Patient Disposition: Home, Self-Care Prescriptions Prescriptions: New prednisone 50 mg tablet 50 mg PO DAILY 5 Days Qty: 5 0RF fluticasone propion-salmeterol 232-14 mcg/actuation aerosol powdr breath activated 1 inh inhalation BID Qty: 1 0RF Rx Instructions: Do not combine with other inhaled steroid long-acting beta agonist, please brush your teeth and tongue after every use No Action albuterol sulfate 8.5 GM HFA aerosol inhaler 2 puff IH Q4HP PRN (Reason: SOA) albuterol sulfate 2.5 MG/NEB solution for nebulization 2.5 mg IH Q6HP PRN (Reason: Shortness Of Breath) 30 Days Qty: 90 2RF azithromycin [azithromycin] 250 mg tablet 250 mg PO DIRECTED Qty: 6 0RF Rx Instructions: Take two (2) tablets on day #1, then one (1) tablet day #2 thru #5 budesonide-formoterol [Symbicort] 80-4.5 mcg/actuation HFA aerosol inhaler 1 puff inhalation BID Qty: 10.2 0RF doxycycline hyclate 100 mg capsule 100 mg PO BID 10 Days Qty: 20 0RF prednisone 50 mg tablet 50 mg PO DAILY 5 Days Qty: 5 0RF prednisone 20 mg tablet 20 mg PO BID 5 Days Qty: 10 0RF ipratropium-albuterol 0.5 mg-3 mg(2.5 mg base)/3 mL solution for nebulization 3 ml inhalation Q4H PRN (Reason: shortness of breath) Qty: 90 0RF Rx Instructions: until breathing returns to target peak flow/parameters Referrals Follow up/Referrals: Samuel Murguia MD [Primary Care Provider] - See instructions Evelina Tomlin MD [Physician] - See instructions Activity Restrictions/Add. Instructions Additional Instructions/Restrictions: At this time it was felt you are safe to be discharged home. If new or worsening symptoms please do not hesitate to return the emergency department. Please use your inhaler as discussed 2 to 3 puffs every 2-3 hours. 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 Please follow-up with Dr. Tomlin as soon as you are able so he can start you on long-term control medications. Clinical Impressions Clinical Impression: Asthma exacerbation, Respiratory syncytial virus (RSV) Print Language Print Language: [place]arag[place] Discharge ED Provider: Fidencio Flores General Adult HPI General Chief complaint: Upper Respiratory Infection Stated complaint: SOA,exposed to RSV Time Seen by Provider: 09/19/24 18:24 Mode of Arrival: Wheelchair Source of Information: Patient Limitations: No Limitations Description of Symptoms (Recalled from ER Triage Doc. by RN): Reports that he was seen here recently and diagnosed with Upper Respiratory infection and prescribed antibiotics and steroids. States his son was recently diagnosed with RSV. Patient reports that he is short of breath and his back is hurting. States this has been going on for approx 1 week. History of Present Illness HPI narrative: Patient is a 29-year-old male with past medical history of asthma who presents to the emergency department for evaluation of shortness of breath and cough. Onset was acute, over the last 9 days. Patient has had pleuritic chest pain when he takes in a deep breath over his back. He was seen in the emergency department recently and discharged with doxycycline and amoxicillin and steroids for which she has been compliant. He does not have any significant anterior chest pain. He has taken his metered-dose inhaler twice today as well as a breathing treatment last administered at 2 PM with no improvement of symptoms. Due to this he presents here for continued evaluation. Related Data Home Medications ?Medication ?Instructions ?Recorded ?Confirmed albuterol sulfate 90 mcg/actuation 2 puff inhalation Q4HP PRN SOA 10/09/21 09/10/22 aerosol inhaler Previous Rx's ?Medication ?Instructions ?Recorded albuterol sulfate 2.5 mg/3 mL 2.5 mg (3 mL) inhalation Q6HP PRN 10/09/21 (0.083 %) solution for nebulization Shortness Of Breath 30 days #90 mL azithromycin 250 mg tablet 250 mg PO DIRECTED #6 tabs 09/10/22 budesonide-formoterol HFA 80 1 puff inhalation BID #10.2 grams 03/02/23 mcg-4.5 mcg/actuation aerosol inhaler (Symbicort) ipratropium 0.5 mg-albuterol 3 mg 3 ml inhalation Q4H PRN shortness 03/18/24 (2.5 mg base)/3 mL nebulization of breath #90 mL soln prednisone 20 mg tablet 20 mg PO BID 5 days #10 tabs 03/18/24 doxycycline hyclate 100 mg capsule 100 mg PO BID 10 days #20 caps 09/10/24 prednisone 50 mg tablet 50 mg PO DAILY 5 days #5 tabs 09/10/24 prednisone 50 mg tablet 50 mg PO DAILY 5 days #5 tabs 09/19/24 fluticasone 232 mcg-salmeterol 14 1 inh inhalation BID asthma #1 ea 09/20/24 mcg/actuation breath activated powdr Allergies Allergy/AdvReac Type Severity Reaction Status Date / Time shellfish derived Allergy Verified 04/02/22 13:20 [facility] Disclaimer: The information contained in this section may have been updated after the patient was seen, as this information can be updated by other users. Social History (Updated 09/15/24 @ 07:21 by Krishna Sheldon MD) Smoking Status: Current every day smoker alcohol intake: never substance use type: marijuana current occupational status: other household members: other Other Medical History Have you received the Flu Vaccine for this season: No Have you received the Pneumonia Vaccine: No ROS Obtained: Yes Systems reviewed as appropriate & no additional complaints except as documented Physical Exam General General appearance: alert and in no apparent distress Head Head exam: atraumatic and normocephalic Eye Eye exam: Present PERRL and EOMI ENT ENT exam: Present mucous membranes moist Neck Neck exam: Present normal inspection Chest Chest inspection: Present normal inspection and symmetric chest wall rise Respiratory Respiratory exam: Present respiratory distress, wheezes, accessory muscle use and prolonged expiratory phase Cardiovascular Cardiovascular exam: Present normal rhythm and tachycardia Abdominal Exam Abdominal exam: Present soft; Absent tenderness Extremities Exam Extremities exam: Present normal inspection Neurological Exam Neurological exam: Present alert Psychiatric Psychiatric exam: Present normal affect Skin Skin exam: Present warm and dry Medical Decision Making Medical Records Screening: Per USPSTF and CDC recommendations, given the prevalence of disease in our region, it is our hospital?s policy to screen for HIV and viral Hepatitis for all patients aged 18 and over and those with ongoing risk factors. Zachariah Inquiry Pt receiving controlled substance: No Vital Signs: 09/19/24 18:18 09/19/24 19:00 09/19/24 19:16 Temperature 98.6 F 98.6 F Temperature Source Oral Tympanic Pulse Rate 104 H 108 H Pulse Rate [Radial] 100 H Respiratory Rate 16 26 H 24 Blood Pressure 124/82 120/86 Blood Pressure [Right Arm] 142/89 H Blood Pressure Mean 96 94 Blood Pressure Mean [Right Arm] 106 Blood Pressure Source [Right Arm] Automatic Cuff Blood Pressure Position [Right Arm] Sitting 02 Sat by Pulse Oximetry 95 94 L 99 Oxygen Delivery Method Room Air Room Air Aerosol Mask Oxygen Flow Rate (LPM) 10 09/19/24 19:27 09/19/24 19:30 09/19/24 19:33 Temperature Temperature Source Pulse Rate 109 H 108 H 109 H Pulse Rate [Radial] Respiratory Rate 24 Blood Pressure 113/73 Blood Pressure [Right Arm] Blood Pressure Mean 87 Blood Pressure Mean [Right Arm] Blood Pressure Source [Right Arm] Blood Pressure Position [Right Arm] 02 Sat by Pulse Oximetry 99 Oxygen Delivery Method Aerosol Mask Oxygen Flow Rate (LPM) 10 09/19/24 19:45 09/19/24 20:00 09/19/24 20:45 Temperature Temperature Source Pulse Rate 118 H 121 H 112 H Pulse Rate [Radial] Respiratory Rate 21 24 Blood Pressure 121/73 132/79 Blood Pressure [Right Arm] Blood Pressure Mean 85 87 Blood Pressure Mean [Right Arm] Blood Pressure Source [Right Arm] Blood Pressure Position [Right Arm] 02 Sat by Pulse Oximetry 99 95 Oxygen Delivery Method Room Air Room Air Oxygen Flow Rate (LPM) 09/19/24 22:07 Temperature 98.6 F Temperature Source Oral Pulse Rate 129 H Pulse Rate [Radial] Respiratory Rate 18 Blood Pressure 120/71 Blood Pressure [Right Arm] Blood Pressure Mean Blood Pressure Mean [Right Arm] Blood Pressure Source [Right Arm] Blood Pressure Position [Right Arm] 02 Sat by Pulse Oximetry Oxygen Delivery Method Room Air Oxygen Flow Rate (LPM) Lab Data Lab Results 09/19/24 18:47: D-Dimer 0.68 H, Sodium 138, Potassium 3.3 L, Chloride 102, Carbon Dioxide 28, Anion Gap 11.3, BUN 13, Creatinine 0.80, Estimated Creat Clear 140, Estimated GFR 114, Est GFR ( Amer) 138, Glucose 109 H, Calcium 9.0, Total Bilirubin 0.7, AST 40, ALT 65, Alkaline Phosphatase 145 H, Troponin I < 0.01, Total Protein 7.7, Albumin 4.5, Globulin 3.2, Albumin/Globulin Ratio 1.4 09/19/24 18:54: Chlamy pneumoniae PCR Not detected, Adenovirus (PCR) Not detected, B. pertussis DNA (PCR) Not detected, Coronavirus OC43 (PCR) Not detected, Coronavirus HKU1 (PCR) Not detected, Coronavirus 229E (PCR) Not detected, SARS-CoV-2 (PCR) Not detected, Coronavirus NL63 (PCR) Not detected, Human Metapneumovir PCR Not detected, Influenza A (H1) PCR Not detected, Influ A (H1N1/09) PCR Not detected, Influenza A (H3) PCR Not detected, Influenza Type A (PCR) Not detected, Influenza Type B (PCR) Not detected, M. pneumoniae (PCR) Not detected, Parainfluenza 1 (PCR) Not detected, Parainfluenza 2 (PCR) Not detected, Parainfluenza 3 (PCR) Not detected, Parainfluenza 4 (PCR) Not detected, RSV (PCR) Detected A, Entero/Rhino (PCR) Not detected 09/19/24 18:55: WBC 10.6, RBC 4.93, Hgb 12.8 L, Hct 41.3 L, MCV 83.7, MCH 25.9 L , MCHC 30.9 L, RDW 16.1, Plt Count 363, MPV 7.4, Neut % (Auto) 81.2 H, Lymph % (Auto) 11.9, [place] % (Auto) 5.9, Eos % (Auto) 0.6, Baso % (Auto) 0.4, Neut # (Auto) 8.6 H, Lymph # (Auto) 1.3, [place] # (Auto) 0.6, Eos # (Auto) 0.1, Baso # (Auto) 0.0 09/19/24 18:55 09/19/24 18:47 Orders (Tests/Meds): ED MEDICATIONS Discontinued Medications Generic Name Dose Route Start Last Admin Trade Name Freq PRN Reason Stop Dose Admin Acetaminophen 1,000 mg 09/19/24 18:35 09/19/24 19:00 Acetaminophen 1,000mg/100ml Vial IV 09/19/24 18:36 1,000 mg ONCE ONE Administration Albuterol Sulfate 20 mg 09/19/24 20:33 09/19/24 21:32 Albuterol 0.083% 2.5 Mg/3 Ml Neb IH 09/19/24 20:34 20 mg ONCE ONE Administration Albuterol/Ipratropium 9 ml 09/19/24 18:35 09/19/24 19:21 Ipratropium/Albuterol 3 Ml Neb IH 09/19/24 18:36 9 ml ONCE ONE Administration Magnesium Sulfate 2 gm in 50 mls @ 50 mls/hr 09/19/24 18:35 09/19/24 19:27 Magnesium Sulfate 2gm/50ml Premix IV 09/19/24 19:34 50 mls/hr ONCE ONE Administration Ketorolac Tromethamine 30 mg 09/19/24 18:35 09/19/24 18:58 Ketorolac 30mg/Ml Vial IV 09/19/24 18:36 30 mg ONCE ONE Administration Methylprednisolone Sodium Succinate 125 mg 09/19/24 18:35 09/19/24 18:58 Methylprednisolone Sod Succ 125mg Vial IV 09/19/24 18:36 125 mg ONCE ONE Administration ORDERS Category Date Time Status CXR 2 view (NOT portable) [XR chest 2V] Stat Exams 09/19/24 18:35 Completed CBC w/Auto Diff [Complete Blood Count Auto Diff] Stat Lab 09/19/24 18:55 Completed CMP [Comprehensive Metabolic Panel] Stat Lab 09/19/24 18:47 Completed D-Dimer Stat Lab 09/19/24 18:47 Completed Full Resp Panel w/COVID ([facility]) Routine Lab 09/19/24 18:54 Completed Trop I [Troponin I] Stat Lab 09/19/24 18:47 Completed ECG Data Tracing #1: Independently inter by me rate is 117, rhythm is regular, axis is normal, no ST elevation in anatomical contiguous leads, QTc 368. Medical Decision Narrative: In summary patient is a 29-year-old male past medical history described above presents emergency department for evaluation of shortness of breath in the setting of suspected lower respiratory tract infection. Patient is hemodynamically stable nontoxic-appearing upon arrival, tachycardic, afebrile. Patient is wheezing in all lung bowles which makes me suspect he has viral induced asthma exacerbation. He has pleuritic chest pain posteriorly. Differential diagnosis includes pulmonary embolism, pneumonia, pleurisy, among others. Workup we conducted a hematologic labs, chest x-ray, EKG, troponin, viral swab. Initial inventions include DuoNebs x 3, Toradol, Tylenol, methylprednisolone, magnesium sulfate. Dust x-ray informally interpreted by me, no acute lobar opacities, there appears to be mild hyperexpansion. Initial workup reviewed by me, hematologic labs are nonactionable, no significant leukocytosis, no DOMINGO or critical electrolyte abnormality. Mild hypokalemia which does not need intervention at this time initial troponin undetectably low. D-dimer 0.68 years criteria excludes pulmonary embolism. Upon repeat evaluation patient had persistent wheezing but reported significant improvement of symptoms and he did have improved air movement, had tachycardia in the setting of albuterol administration. RSV positive on the viral swab. Patient will be started on continuous albuterol. After continuous albuterol for approximately 45 minutes on repeat evaluation patient had near total resolution of wheezing has significant improvement of symptoms. Given this I think that patient is appropriate for outpatient management at this time and was given a metered-dose inhaler with a spacer by respiratory prior to discharge was given multiple return precautions verbalized understanding. Patient we discharged with course of oral steroids and inhaled corticosteroid LABA combo for maintenance therapy of his asthma. Patient will follow-up on an outpatient basis with Dr. Tomlin. Critical Care Critical Care Time Critical Care Time: No
[2024-09-19 18:57] LABS: Basophils % 0.4 % (0.1-2.0); Eosinophils # 0.1 K/mm3 (0.0-0.4); Eosinophils % 0.6 % (0.1-12.0); Hematocrit 41.3 % (42.0-52.0); Hemoglobin 12.8 g/dL (14.1-18.0); Lymphocytes # 1.3 K/mm3 (0.7-4.5); Lymphocytes % 11.9 % (10-50); Mean Corpuscular HGB Conc 30.9 g/dL (31.8-35.4); Mean Corpuscular Hemoglobin 25.9 pg (27.0-31.2); Mean Corpuscular Volume 83.7 fl (80-94); Mean Platelet Volume 7.4 fl (7.4-10.4); Monocytes # 0.6 K/mm3 (0.1-1.0); Monocytes % 5.9 % (1.7-9.3); Neutrophils # 8.6 K/mm3 (1.8-7.8); Neutrophils % 81.2 % (37.0-80.0); Platelet Count 363 K/mm3 (142-424); Red Blood Count 4.93 M/mm3 (4.60-6.20); Red Cell Distribution Width 16.1 % (11.5-17.5); White Blood Count 10.6 K/mm3 (4.8-10.8)
[2024-09-19] MEDS: METHYLPREDNISOLONE SOD SUCC 125MG VIAL 125 MG IV (18:58)
[2024-09-19] MEDS: KETOROLAC 30MG/ML VIAL 30 MG IV (18:58)
[2024-09-19] MEDS: ACETAMINOPHEN 1,000MG/100ML VIAL 1000 MG IV (19:00)
[2024-09-19 19:06] LABS: Adenovirus,PCR Not Detected (NotDetected); Bordetella Pertussis Not Detected (NotDetected); Chlamydophila Pneumoniae, PCR Not Detected (NotDetected); Coronavirus 19, PCR Not Detected (NotDetected); Coronavirus 229E Not Detected (NotDetected); Coronavirus NL63 Not Detected (NotDetected); Coronavirus OC43 Not Detected (NotDetected); Coronovirus HKU1,PCR Not Detected (NotDetected); Human Metapneumovirus Not Detected (NotDetected); Influenza A, PCR Not Detected (NotDetected); Influenza AH1, 2009 Not Detected (NotDetected); Influenza AH1, PCR Not Detected (NotDetected); Influenza AH3,PCR Not Detected (NotDetected); Influenza B, PCR Not Detected (NotDetected); Mycoplasma Pneumoniae, PCR Not Detected (NotDetected); Parainfluenza 1, PCR Not Detected (NotDetected); Parainfluenza 2, PCR Not Detected (NotDetected); Parainfluenza 3, PCR Not Detected (NotDetected); Parainfluenza 4, PCR Not Detected (NotDetected); Rhinovirus/Enterovirus Not Detected (NotDetected)
[2024-09-19] MEDS: IPRATROPIUM/ALBUTEROL 3 ML NEB 9 ML IH (19:21)
[2024-09-19] MEDS: MAGNESIUM SULFATE IN WATER 2 GM/50 ML PIGGYBACK IV (19:27)
[2024-09-19 19:36] LABS: Alanine Aminotransferase 65 U/L (12-78); Albumin Level 4.5 g/dl (3.5-5.0); Albumin/Globulin Ratio 1.4 (1.1-1.8); Alkaline Phosphatase 145 U/L (38-126); Anion Gap 11.3 mEq/L (5-15); Aspartate Amino Transferase 40 U/L (17-59); Bilirubin,Total 0.7 mg/dl (0.2-1.3); Blood Urea Nitrogen 13 mg/dl (9-20); Carbon Dioxide 28 mmol/L (22.0-30.0); Chloride 102 mmol/L (98-107); Creatinine Clearance Estimated 140 mL/min (50-200); Estimated Glomerular Filt Rate 114 ml/min (>60); GFR (African American) 138 ML/MIN (>60); Globulin 3.2 g/dL (1.3-3.2); Glucose 109 mg/dl (74-100); Potassium 3.3 mmoL/L (3.5-5.1); Sodium 138 mmol/L (136-145); Total Protein,Serum 7.7 g/dl (6.3-8.2)
[2024-09-19 19:39] LABS: D-Dimer 0.68 ug/mL (0.0-0.5)
[2024-09-19 19:50] LABS: Troponin I < 0.01 ng/ml (0.00-0.034)
[2024-09-19 20:26] LABS: Respiratory Syncytial Virus Detected (NotDetected)
[2024-09-19] MEDS: ALBUTEROL 0.083% 2.5 MG/3 ML NEB 20 MG IH (21:32)
== END 2024-09-19 22:12 | disposition home or self-care (01) ==
PROVIDERS: Emergency Provider Emergency Medicine; PCP Family Medicine
DX: J45.901 Unspecified asthma with (acute) exacerbation (principal); B33.8 Other specified viral diseases; R06.02 Shortness of breath; M54.9 Dorsalgia, unspecified; R05.9 Cough, unspecified; Z72.0 Tobacco use
CPT/HCPCS: 71046; 80053; 84484; 85025; 85378; 87633; 93005; 96365; 96374; 96375; 99284; J0131; J1885; J2919; J3475; J7613; J7620